=== PATIENT | male | born 1965 | race Caucasian/White ===

== ENCOUNTER 2024-04-10 18:34 | Inpatient (IN) | payer OTHER ==
[~2024-04-10] VITALS: Ht 182.9 cm; Wt 83.3 kg
[2024-04-10 19:38] LABS: BASOPHILS PERCENT AUTO 1 % (0-2); EOSINOPHILS ABSOLUTE AUTO 0.32 K/mm3 (0.00-0.68); EOSINOPHILS PERCENT AUTO 4 % (0-6); Hematocrit 24.5 % (37.0-53.0); Hemoglobin 7.9 g/dL (13.5-17.5); IMMATURE GRAN ABSOLUTE AUTO 0.05 K/mm3 (0.00-0.10); IMMATURE GRAN PERCENT AUTO 1 % (0-1); LYMPHOCYTES ABSOLUTE AUTO 1.22 K/mm3 (0.84-5.20); LYMPHOCYTES PERCENT AUTO 14 % (21-46); MONOCYTES ABSOLUTE AUTO 0.54 K/mm3 (0.16-1.47); MONOCYTES PERCENT AUTO 6 % (4-13); Mean Corpuscular HGB 27.5 pg (26.0-34.0); Mean Corpuscular HGB Conc 32.2 g/dL (31.5-36.5); Mean Corpuscular Volume 85 fL (80-100); Mean Platelet Volume 11.3 fL (9.1-12.4); NEUTROPHILS ABSOLUTE AUTO 6.73 K/mm3 (1.96-9.15); NEUTROPHILS PERCENT AUTO 75 % (41-73); Platelet Count 219 K/mm3 (150-400); RDW Coefficient Variation 15.9 % (11.7-14.2); RDW Standard Deviation 49.5 fL (35.1-46.3); Red Blood Cell Count 2.87 M/mm3 (4.30-5.90); White Blood Cell Count 8.96 K/mm3 (4.00-11.30)
[2024-04-10 19:52] LABS: Albumin, Blood 2.7 g/dL (3.4-5.0); Albumin/Globulin Ratio 0.6 (0.8-1.8); Bilirubin, Total 0.4 mg/dL (0.1-1.0); Bun/Creatinine Ratio 14.2 (12.0-20.0); Creatinine, Blood 3.25 mg/dL (0.60-1.20); Globulin, Blood 4.3 g/dL (2.2-4.0); Potassium, Blood 3.6 mmol/L (3.5-5.5)
[2024-04-10] MEDS ORDERED: Cefepime HCl 1,000 MG in NS 100 ML IV ONE (23:30)
[2024-04-10] MEDS ORDERED: Cefepime 1000 mg Vial ONE (23:37)
[2024-04-10] MEDS ORDERED: NS 100 ML IV ONE (23:38)
--- NOTE | 2024-04-11 02:00 | NUR ---
NEW ADMIT. PATIENT ADMITTED TO ROOM 305 FROM THE ER. PATIENT IN WITH ABCESS TO THE RIGHT CHEST WALL. PATIENT IS A&OX4. PATIENT ON TELE-NO EVENTS. PATIENT RESTING WITH RESPIRATIONS EQUAL AND UNLABORED. BED IS LOCKED IN THE LOWEST POSITION WITH CALL LIGHT IN REACH. REPORT GIVEN TO REYMUNDO AGUIAR RN.
[2024-04-11 02:08] VITALS: BP 162/65
[2024-04-11] MEDS ORDERED: Lactated Ringer's 1,000 ML IV ONE (02:37)
[2024-04-11 07:36] VITALS: BP 177/73
[2024-04-11] MEDS ORDERED: Vancomycin HCL 1,750 MG in NS 500 ML IV SCH (09:00)
--- NOTE | 2024-04-11 10:03 | NUR ---
PATIENT REFUSES AM ASSESSMENTS. SAYS "NONE OF YOUR [employer] BUSINESS QUIT ASKING ME QUESTIONS. ATTEMPS AT EDUCATION ARE MET WITH RESISTANCE AND DEFIANT ATTITUDE. PATIENT DOES ALLOW VANCOMYCEN TO BE INFUSED HOWEVER INSISTS THAT IT BE STOPPED WHEN HE GOES TO THE BATHROOM. LAB IN TO DRAW LABS AND PATIENT REFUSES BLOOD DRAW FOR BLOOD CULTURES. PATIENT REMOVES TELEMENTARY LEADS. REFUSES TO WEAR TELE. SAYS "I DON'T NEED IT LEAVE ME THE FUCK ALONE" ATTEMPS AT EDUCATION ARE MET WITH MUCH RESISTANC. IS CALLED "NO ANSWER" WILL REACH OUT TO .
[2024-04-11] MEDS ORDERED: HydrALAZINE HCl 20 MG / ML 1ML Vial IV PRN (13:10)
[2024-04-11] MEDS ORDERED: Acetaminophen 500 MG Tab PO PRN (13:10)
[2024-04-11] MEDS ORDERED: Carvedilol 3.125 MG Tab PO SCH (14:15)
[2024-04-11] MEDS ORDERED: NS 250 ML IV PRN (15:25)
[2024-04-11] MEDS ORDERED: Cefepime HCl 500 MG in NS 100 ML IV SCH (16:00)
[2024-04-11] MEDS ORDERED: Insulin Human Lispro 100 Units/ML 3ML Syringe SC SCH (16:30)
[2024-04-11 16:39] VITALS: BP 178/82
--- NOTE | 2024-04-11 17:57 | NUR ---
SUMMARY PT RESTING QUIETLY IN BED, PT HAS BEEN NPO FOR MOST OF THE DAY FOR POTENTIAL I&D PROCEDURE, PT ON A MAD CONTRACT, HAS BEEN COOPERATIVE SINCE THEN, DR HART SAW PATIENT AND ORDERED A DIET, DR HERMOSILLO IN TO SEE THE PT, PT TO BE NPO AFTER MIDNIGHT FOR THE PROCEDURE TOMORROW, PT'S GIRLFRIEND IN TO SEE THE PATIENT, VSS, WILL CONT TO MONITOR
[2024-04-11 19:50] VITALS: BP 177/73
[2024-04-11] MEDS ORDERED: Insulin Glargine-Yfgn 100 Unit/mL 3 ML SYR SC SCH (21:00)
[2024-04-11] MEDS ORDERED: Insulin Regular 100 UNIT/ML 10ML Vial SC SCH (21:00)
[2024-04-11] MEDS ORDERED: Nicotine 14 MG PATCH TOP SCH (22:25)
[2024-04-12] VITALS (15 sets, daily range): BP systolic 113–179; BP diastolic 59–79
[2024-04-12] MEDS ORDERED: Ondansetron HCl 2 MG / ML 2ML Vial IV PRN (02:15)
[2024-04-12] MEDS ORDERED: Lactated Ringer's 1,000 ML IV PRN (02:20)
[2024-04-12 06:20] LABS: BASOPHILS ABSOLUTE AUTO 0.12 K/mm3 (0.00-0.23); BASOPHILS PERCENT AUTO 1 % (0-2); EOSINOPHILS ABSOLUTE AUTO 0.45 K/mm3 (0.00-0.68); EOSINOPHILS PERCENT AUTO 5 % (0-6); Hematocrit 24.1 % (37.0-53.0); Hemoglobin 7.7 g/dL (13.5-17.5); IMMATURE GRAN ABSOLUTE AUTO 0.07 K/mm3 (0.00-0.10); IMMATURE GRAN PERCENT AUTO 1 % (0-1); LYMPHOCYTES ABSOLUTE AUTO 0.87 K/mm3 (0.84-5.20); LYMPHOCYTES PERCENT AUTO 10 % (21-46); MONOCYTES ABSOLUTE AUTO 0.86 K/mm3 (0.16-1.47); MONOCYTES PERCENT AUTO 10 % (4-13); Mean Corpuscular HGB 27.4 pg (26.0-34.0); Mean Corpuscular Volume 86 fL (80-100); Mean Platelet Volume 11.5 fL (9.1-12.4); NEUTROPHILS ABSOLUTE AUTO 6.24 K/mm3 (1.96-9.15); NEUTROPHILS PERCENT AUTO 73 % (41-73); Platelet Count 212 K/mm3 (150-400); RDW Coefficient Variation 15.9 % (11.7-14.2); RDW Standard Deviation 50.2 fL (35.1-46.3); Red Blood Cell Count 2.81 M/mm3 (4.30-5.90); White Blood Cell Count 8.61 K/mm3 (4.00-11.30)
--- NOTE | 2024-04-12 06:22 | NUR ---
SHIFT SUMMARY PATIENT HAVING INCREASED AGITATION T/O SHIFT. AXOX 4 AND SELF TRANSFER FROM BED TO W/C. HX LBKA. CBG 336. NPO FOR I&D PROCEDURE TODAY. HYPERTENSIVE WITH NEW ORDER FOR PO COREG 3.125 GIVEN. DENIES CHEST PAIN, SOB, AND N/V. REPORTS POOR VISION. PIV INTAACT. NICOTINE PATCH ORDERED BY HOSPITALIST. LR INFUSING. CALL LIGHT IN REACH. WILL CONTINUE TO MONITOR UNTIL DAY SHIFT RN ASSUMES CARE.
[2024-04-12 06:43] LABS: Alanine Aminotransfer (ALT/SGP 34 U/L (12-78); Albumin, Blood 2.6 g/dL (3.4-5.0); Albumin/Globulin Ratio 0.7 (0.8-1.8); Alk Phos 143 U/L (50-136); Anion Gap 17 mmol/L (3-11); Aspartate Aminotrans (AST/SGOT 24 U/L (12-37); Bilirubin, Total 0.4 mg/dL (0.1-1.0); Blood Urea Nitrogen 90 mg/dL (8-24); Bun/Creatinine Ratio 15.5 (12.0-20.0); CO2, Blood 24 mmol/L (21-32); Calcium, Blood 9.2 mg/dL (8.5-10.1); Chloride, Blood 97 mmol/L (98-108); Creatinine, Blood 5.81 mg/dL (0.60-1.20); Globulin, Blood 3.9 g/dL (2.2-4.0); Glomerular Filtration Rate 10 (60-); Glucose, Blood 303 mg/dL (70-99); Potassium, Blood 4.9 mmol/L (3.5-5.5); Sodium, Blood 133 mmol/L (136-145); Total Protein, Blood 6.5 g/dL (6.4-8.2); Vancomycin, Random 28.8 ug/mL
[2024-04-12] MEDS ORDERED: Anticoagulant Sod Citrate Soln 3 ML SYR IV PRN (07:45)
[2024-04-12] MEDS ORDERED: Lactobacil 2-S.Thermo-Bifido 1 1 Cap PO SCH (09:00)
[2024-04-12] MEDS ORDERED: Lactated Ringer's 1,000 ML IV ONE (11:59)
--- NOTE | 2024-04-12 12:20 | NUR ---
PT IN PACU FOR PREOP. ANETHESIA CONSULTING WITH PT NOW.
[2024-04-12] MEDS ORDERED: NS 1,000 ML IV ONE (12:21)
[2024-04-12] MEDS ORDERED: Bupivacaine 0.5% Inj 50 ML Vial ONE (12:21)
[2024-04-12] MEDS ORDERED: propofoL 20 ML IV ONE (12:23)
[2024-04-12] MEDS ORDERED: FentaNYL Citrate 50 MCG/ML 2 ML Injection ONE (12:23)
--- NOTE | 2024-04-12 19:35 | NUR ---
PT MOSTLY PLEASANT TODAY. DID GO TO DIALYSIS THEN PROMPTLY REFUSED. WAS SENT BACK. DR FARNSWORTH ADVISED. DID GO TO DAY SURG FOR I & D. DRESSING MEPILEX IN PLACE. CDI. REFUSING LUNCH AND DINNER STATES HAS GASTRO PARESIS. ALSO STATES AFRAID TO TAKE INSULIN AT HOME CANNOT SEE PENS OR GLUCOMETER TO ADMIN AND AFRAID TO KILL SELF. DISCUSSED OPTIONS. SEEMS TO PUT UP BARRIERS TO IDEAS. ASKED HIM TO TALK FRANKLY WITH DR TOMORROW. PT REFUSED DINNER, CALLED DR ALBERTO, GAVE 3 UNITS PER HIS ORDER FOR DINNER DOSE. HE DID UP PM DOSE OF LONG ACTING INSULIN TO 20 UNITS . NO OTHER CONCERNS NOTED. BED IN LOW POSITION, CALL LITE IN REACH, CALLS APROP
[2024-04-12] MEDS ORDERED: Insulin Glargine-Yfgn 100 Unit/mL 3 ML SYR SC SCH (21:00)
[2024-04-13] VITALS (15 sets, daily range): BP systolic 167–208; BP diastolic 79–111
--- NOTE | 2024-04-13 04:26 | NUR ---
SHIFT SUMMARY PATIENT HAD NO ACUTE CHANGES, VISITORS PRESENT FIRST FEW HOURS OF SHIFT. AXOX 4 AND SELF TRANSFER FROM BED TO W/C. LBKA. DENIES CHEST PAIN, SOB, AND N/V. HYPERTENSIVE. CBG 255. PIV INTACT. MEPILEX DRESSING FROM I&D CHANGED WITH SCANT DRAINAGE. STOOL SAMPLE COLLECTED AND SENT TO LAB. C-DIFF R/O. COOPERATIVE WITH CARE. CALL LIGHT IN REACH. BED IN LOWEST POSITION. WILL CONTINUE TO MONITOR UNTIL DAY SHIFT NURSE ASSUMES CARE.
[2024-04-13 05:15] LABS: BASOPHILS ABSOLUTE AUTO 0.09 K/mm3 (0.00-0.23); BASOPHILS PERCENT AUTO 1 % (0-2); EOSINOPHILS ABSOLUTE AUTO 0.42 K/mm3 (0.00-0.68); EOSINOPHILS PERCENT AUTO 5 % (0-6); Hematocrit 23.1 % (37.0-53.0); Hemoglobin 7.4 g/dL (13.5-17.5); IMMATURE GRAN ABSOLUTE AUTO 0.07 K/mm3 (0.00-0.10); IMMATURE GRAN PERCENT AUTO 1 % (0-1); LYMPHOCYTES ABSOLUTE AUTO 1.24 K/mm3 (0.84-5.20); LYMPHOCYTES PERCENT AUTO 14 % (21-46); MONOCYTES ABSOLUTE AUTO 0.73 K/mm3 (0.16-1.47); MONOCYTES PERCENT AUTO 8 % (4-13); Mean Corpuscular HGB 27.2 pg (26.0-34.0); Mean Corpuscular Volume 85 fL (80-100); Mean Platelet Volume 12.6 fL (9.1-12.4); NEUTROPHILS ABSOLUTE AUTO 6.09 K/mm3 (1.96-9.15); NEUTROPHILS PERCENT AUTO 71 % (41-73); Platelet Count 233 K/mm3 (150-400); RDW Coefficient Variation 16.5 % (11.7-14.2); Red Blood Cell Count 2.72 M/mm3 (4.30-5.90); White Blood Cell Count 8.64 K/mm3 (4.00-11.30)
--- NOTE | 2024-04-13 05:17 | NUR ---
PATIENT REFUSING MORNING VITALS REPORTING HE WOULD RATHER SLEEP. WCTM.
[2024-04-13 05:58] LABS: Alanine Aminotransfer (ALT/SGP 37 U/L (12-78); Albumin, Blood 2.5 g/dL (3.4-5.0); Albumin/Globulin Ratio 0.7 (0.8-1.8); Alk Phos 151 U/L (50-136); Anion Gap 17 mmol/L (3-11); Aspartate Aminotrans (AST/SGOT 23 U/L (12-37); Bilirubin, Total 0.3 mg/dL (0.1-1.0); Blood Urea Nitrogen 102 mg/dL (8-24); Bun/Creatinine Ratio 15.1 (12.0-20.0); CO2, Blood 22 mmol/L (21-32); Chloride, Blood 98 mmol/L (98-108); Creatinine, Blood 6.74 mg/dL (0.60-1.20); Globulin, Blood 3.7 g/dL (2.2-4.0); Glomerular Filtration Rate 9 (60-); Glucose, Blood 303 mg/dL (70-99); Magnesium, Blood 2.1 mg/dL (1.6-2.4); Potassium, Blood 5.3 mmol/L (3.5-5.5); Sodium, Blood 132 mmol/L (136-145); Total Protein, Blood 6.2 g/dL (6.4-8.2); Vancomycin, Random 24.1 ug/mL
[2024-04-13 06:00] LABS: Phosphorus, Blood 8.3 mg/dL (2.5-4.9)
[2024-04-13 06:54] LABS: C DIFFICILE DNA Formed (Negative)
[2024-04-13] MEDS ORDERED: Insulin Human Lispro 100 Units/ML 3ML Syringe SC SCH (11:30)
[2024-04-13 14:54] LABS: Bun/Creatinine Ratio 14.3 (12.0-20.0); Calcium, Blood 8.7 mg/dL (8.5-10.1); Creatinine, Blood 4.61 mg/dL (0.60-1.20); Potassium, Blood 4.2 mmol/L (3.5-5.5)
--- NOTE | 2024-04-13 18:19 | NUR ---
PT PLEASANT THIS AM. MORE IRRITABLE THIS SITA. DID HAVE DIALYSIS THIS AM. COMPLAINING ABOUT HIS FOOD MOSTLY. DID GET IN WHEELCHAIR AND MOTATE ABOUT HALLS TODAY. DISCUSSED PT VISION ISSUES AND HIS FEAR OF TRYING TO GIVE SELF OWN INSULIN. DR DISCUSSED HIM GETTING INSULIN PUMP AND ALL BEING AUTOMATIC. PT FEELS THIS MAY BE A SOLUTION. ON OTHER CONCERNS NOTED. BED IN LOW POSITION, CALL LITE IN REACH, CALLS APPROP
--- NOTE | 2024-04-13 19:08 | NUR ---
PATIENT REPORTED NAUSEOUS BUT REFUSED IV ZOFRAN. WCTM.
--- NOTE | 2024-04-14 04:20 | NUR ---
SHIFT SUMMARY PATIENT HAD NO ACUTE CHANGES. AXOX 4 AND INDEPENDENT TRANSFER FROM BED TO W/C. L BKA. IRRITABLE AT TIMES. REFUSED AM LABS REPORTING TO COME AFTER 8:00. REFUSED MORNING VITALS. DENIES CHEST PAIN, SOB, AND N/V. HYPERTENSIVE. CBG 216. REFUSED IV ZOFRAN WHEN REPORTED NAUSEOUS. CALL LIGHT IN REACH. BED IN LOWEST POSITION. WILL CONTINUE TO MONITOR UNTIL DAY SHIFT NURSE ASSUMES CARE.
--- NOTE | 2024-04-14 04:56 | NUR ---
Pt refused morning vitals, also refused labs
[2024-04-14 08:24] VITALS: BP 194/85
[2024-04-14 08:41] LABS: BASOPHILS ABSOLUTE AUTO 0.09 K/mm3 (0.00-0.23); BASOPHILS PERCENT AUTO 1 % (0-2); EOSINOPHILS PERCENT AUTO 4 % (0-6); Hemoglobin 8.8 g/dL (13.5-17.5); IMMATURE GRAN ABSOLUTE AUTO 0.08 K/mm3 (0.00-0.10); IMMATURE GRAN PERCENT AUTO 1 % (0-1); LYMPHOCYTES ABSOLUTE AUTO 1.34 K/mm3 (0.84-5.20); LYMPHOCYTES PERCENT AUTO 14 % (21-46); MONOCYTES ABSOLUTE AUTO 0.86 K/mm3 (0.16-1.47); MONOCYTES PERCENT AUTO 9 % (4-13); Mean Corpuscular HGB 27.2 pg (26.0-34.0); Mean Corpuscular HGB Conc 31.4 g/dL (31.5-36.5); Mean Corpuscular Volume 87 fL (80-100); Mean Platelet Volume 12.1 fL (9.1-12.4); NEUTROPHILS ABSOLUTE AUTO 6.85 K/mm3 (1.96-9.15); NEUTROPHILS PERCENT AUTO 71 % (41-73); Platelet Count 257 K/mm3 (150-400); RDW Coefficient Variation 16.5 % (11.7-14.2); RDW Standard Deviation 51.8 fL (35.1-46.3); Red Blood Cell Count 3.23 M/mm3 (4.30-5.90); White Blood Cell Count 9.62 K/mm3 (4.00-11.30)
[2024-04-14 09:14] LABS: Alanine Aminotransfer (ALT/SGP 65 U/L (12-78); Albumin, Blood 2.7 g/dL (3.4-5.0); Albumin/Globulin Ratio 0.6 (0.8-1.8); Alk Phos 165 U/L (50-136); Anion Gap 16 mmol/L (3-11); Aspartate Aminotrans (AST/SGOT 42 U/L (12-37); Bilirubin, Total 0.4 mg/dL (0.1-1.0); Blood Urea Nitrogen 85 mg/dL (8-24); Bun/Creatinine Ratio 14.3 (12.0-20.0); CO2, Blood 27 mmol/L (21-32); Calcium, Blood 9.1 mg/dL (8.5-10.1); Chloride, Blood 98 mmol/L (98-108); Creatinine, Blood 5.95 mg/dL (0.60-1.20); Globulin, Blood 4.4 g/dL (2.2-4.0); Glomerular Filtration Rate 10 (60-); Glucose, Blood 207 mg/dL (70-99); Magnesium, Blood 2.1 mg/dL (1.6-2.4); Phosphorus, Blood 7.2 mg/dL (2.5-4.9); Potassium, Blood 4.9 mmol/L (3.5-5.5); Sodium, Blood 136 mmol/L (136-145); Total Protein, Blood 7.1 g/dL (6.4-8.2); Vancomycin, Random 20.6 ug/mL
[2024-04-14] MEDS ORDERED: Ampicillin Sod 2,000 MG in NS 100 ML IV SCH (12:00)
[2024-04-14] MEDS ORDERED: LIPITOR80 MG PO (17:03)
[2024-04-14] MEDS ORDERED: PLAVIX75 MG PO (17:03)
[2024-04-14] MEDS ORDERED: PANTOPRAZOLE SO2010 PO (17:03)
[2024-04-14] MEDS ORDERED: CARVEDILOL12.5 MG PO (17:03)
[2024-04-14] MEDS ORDERED: REGLAN1013 PO (17:04)
[2024-04-14] MEDS ORDERED: ASPI81CH PO (17:04)
[2024-04-14] MEDS ORDERED: TORS10 PO (17:04)
[2024-04-14] MEDS ORDERED: ISOSORBIDE MONO60 MG PO (17:04)
[2024-04-14] MEDS ORDERED: CENTRUM SILVER1 EAC2 PO (17:05)
[2024-04-14 17:16] VITALS: BP 171/88
--- NOTE | 2024-04-14 18:38 | NUR ---
SHIFT SUMMARY: PT A&O X4. COOPERATIVE WITH CARE THIS SHIFT. MAD CONTRACT IN PLACE. PT EVAL IN PLACE FOR TOMORROW. PT REQESTING TO RETURN TO [facility] THEN STATED HE WOULD RATHER GO TO SNF D/T UNABLE TO CARE FOR HIMSELF AT HOME AND UNABLE TO MANAGE OWN INSULIN. PREVIOUS IV ABX D/C AND PT PLACED ON 2G AMPICILLIN Q6. INDEPENDENT TRANSFER FROM BED TO W/C. HYPERTENSION NOTED THIS AM. PRN HYDRALAZINE GIVEN. CALL LIGHT IN REACH. BED IN LOWEST POSITION.
[2024-04-14 19:34] VITALS: BP 158/74
[2024-04-15] VITALS (15 sets, daily range): BP systolic 138–193; BP diastolic 67–100
[2024-04-15] MEDS ORDERED: Ampicillin Sod 2,000 MG in NS 100 ML IV SCH
--- NOTE | 2024-04-15 04:45 | NUR ---
PATIENT IS A&OX4, ON ROOM AIR, ELEVATED BP 175/78 HAS PRN BP MEDS. PATIENT DENIED PAIN. PATIENT CALLS APPROPRIATELY BUT GET AGITATED AT STAFF FOR NOT HAVING EVERYTHING THAT HE REQUEST FOR. BLOOD GLUCOSE WITH IN DEFINED LIMIT DURING SHIFT. PATIENT IS INDEPENDENT IN ROOM WITH HIS WHEELCHAIR, HAS A LEFT BKA. 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 PATIENT GOES TO DIALYSIS EVERY TUESDAYS, THURSDAYS, AND .
[2024-04-15 08:43] LABS: BASOPHILS ABSOLUTE AUTO 0.09 K/mm3 (0.00-0.23); BASOPHILS PERCENT AUTO 1 % (0-2); EOSINOPHILS ABSOLUTE AUTO 0.42 K/mm3 (0.00-0.68); EOSINOPHILS PERCENT AUTO 4 % (0-6); Hematocrit 25.4 % (37.0-53.0); Hemoglobin 8.1 g/dL (13.5-17.5); IMMATURE GRAN ABSOLUTE AUTO 0.07 K/mm3 (0.00-0.10); IMMATURE GRAN PERCENT AUTO 1 % (0-1); LYMPHOCYTES ABSOLUTE AUTO 1.48 K/mm3 (0.84-5.20); LYMPHOCYTES PERCENT AUTO 16 % (21-46); MONOCYTES ABSOLUTE AUTO 0.89 K/mm3 (0.16-1.47); MONOCYTES PERCENT AUTO 9 % (4-13); Mean Corpuscular HGB 27.2 pg (26.0-34.0); Mean Corpuscular HGB Conc 31.9 g/dL (31.5-36.5); Mean Corpuscular Volume 85 fL (80-100); Mean Platelet Volume 11.5 fL (9.1-12.4); NEUTROPHILS ABSOLUTE AUTO 6.57 K/mm3 (1.96-9.15); NEUTROPHILS PERCENT AUTO 69 % (41-73); Platelet Count 246 K/mm3 (150-400); RDW Coefficient Variation 16.6 % (11.7-14.2); RDW Standard Deviation 50.6 fL (35.1-46.3); Red Blood Cell Count 2.98 M/mm3 (4.30-5.90); White Blood Cell Count 9.52 K/mm3 (4.00-11.30)
[2024-04-15 09:03] LABS: Albumin, Blood 2.6 g/dL (3.4-5.0); Albumin/Globulin Ratio 0.6 (0.8-1.8); Bilirubin, Total 0.3 mg/dL (0.1-1.0); Bun/Creatinine Ratio 14.2 (12.0-20.0); Calcium, Blood 9.2 mg/dL (8.5-10.1); Creatinine, Blood 6.62 mg/dL (0.60-1.20); Globulin, Blood 4.2 g/dL (2.2-4.0); Phosphorus, Blood 7.9 mg/dL (2.5-4.9); Potassium, Blood 4.9 mmol/L (3.5-5.5); Total Protein, Blood 6.8 g/dL (6.4-8.2)
--- NOTE | 2024-04-15 19:04 | NUR ---
SHIFT SUMMARY: PT A&O X4. RECIEVIED DIALYSIS THIS AM. IV IN RFA PAINFUL. ATTEMPTED IV TWICE; BOTH BLOWN. NIGHT RN AWARE. CONTINUES TO BE HYPERTENSIVE. TRANSFERS INDEPENDENTLY FROM BED TO WHEELCHAIR. [facility] TENTATIVELY ACCTED PT BUT WANTS TO COMPLETE 1:1 INTERVIEW PRIOR TO ACCEPTANCE. PLAN FOR THAT TO HAPPEN TOMORROW. PT STATING HE WAS WISHING TO GO BACK TO [facility] FOR A FEW DAYS PRIOR TO ADMITTING TO [facility]. CALL LIGHT IN REACH.
--- NOTE | 2024-04-15 19:09 | NUR ---
RECEIVED REPORT FROM DAY SHIFT RN. PT IN BED. WILL PROVIDE CARE T/O SHIFT. CALL LT IN REACH.
--- NOTE | 2024-04-15 19:55 | NUR ---
PT SITTING UP IN WHEELCHAIR.
[2024-04-15] MEDS ORDERED: Heparin Sodium,Porcine 5,000 UNIT/0.5 ML SDV SC SCH (21:00)
--- NOTE | 2024-04-16 00:10 | NUR ---
PT AWAKE WATCHING SOMETHING ON HIS PHONE. DENIES NEEDS AT THIS TIME. IV ABX INFUSING. CALL LT IN REACH.
[2024-04-16 02:11] VITALS: BP 153/97
--- NOTE | 2024-04-16 02:22 | NUR ---
PT OUT AND ABOUT IN WHEELCHAIR. NO NEEDS AT THIS TIME. LINENS CHANGED WHILE PT OUT OF BED.
--- NOTE | 2024-04-16 05:30 | NUR ---
SHIFT SUMMARY: PT COOPERATIVE WITH CARE THIS SHIFT. ON RA. LBKA. TRANSFERS INDEPENDENTLY. A/O STATES NEEDS APPROPRIATELY. CBG 140 NO COVERAGE INDICATED. 20 U OF LANTUS GIVEN WITH A SNACK LATER. PT UP AND AROUND IN W/C. APPEARS DEPRESSED, DOESN'T WANT TO GO TO A SNF BUT DOESN'T WANT TO END UP ON THE STREETS AGAIN EITHER. ENCOURAGED PT TO SPEAK TO A INSTRUCTIONAL PARAPROFESSIONAL ABOUT DISCHARGE PLANNING. NO ACUTE CHANGES. WILL CONTINUE TO PROVIDE CARE T/O SHIFT UNTIL SHIFT REPORT TO ONCOMING NURSE.
[2024-04-16 06:10] LABS: BASOPHILS ABSOLUTE AUTO 0.11 K/mm3 (0.00-0.23); BASOPHILS PERCENT AUTO 1 % (0-2); EOSINOPHILS ABSOLUTE AUTO 0.41 K/mm3 (0.00-0.68); EOSINOPHILS PERCENT AUTO 4 % (0-6); Hematocrit 23.1 % (37.0-53.0); Hemoglobin 7.4 g/dL (13.5-17.5); IMMATURE GRAN ABSOLUTE AUTO 0.06 K/mm3 (0.00-0.10); IMMATURE GRAN PERCENT AUTO 1 % (0-1); LYMPHOCYTES ABSOLUTE AUTO 1.95 K/mm3 (0.84-5.20); LYMPHOCYTES PERCENT AUTO 20 % (21-46); MONOCYTES ABSOLUTE AUTO 0.81 K/mm3 (0.16-1.47); MONOCYTES PERCENT AUTO 8 % (4-13); Mean Corpuscular HGB 27.3 pg (26.0-34.0); Mean Corpuscular Volume 85 fL (80-100); Mean Platelet Volume 11.3 fL (9.1-12.4); NEUTROPHILS PERCENT AUTO 65 % (41-73); Platelet Count 235 K/mm3 (150-400); RDW Coefficient Variation 16.7 % (11.7-14.2); RDW Standard Deviation 51.4 fL (35.1-46.3); Red Blood Cell Count 2.71 M/mm3 (4.30-5.90); White Blood Cell Count 9.64 K/mm3 (4.00-11.30)
[2024-04-16 06:39] LABS: Albumin, Blood 2.4 g/dL (3.4-5.0); Anion Gap 14 mmol/L (3-11); Blood Urea Nitrogen 62 mg/dL (8-24); Bun/Creatinine Ratio 11.4 (12.0-20.0); CO2, Blood 28 mmol/L (21-32); Chloride, Blood 100 mmol/L (98-108); Creatinine, Blood 5.45 mg/dL (0.60-1.20); Glomerular Filtration Rate 11 (60-); Glucose, Blood 122 mg/dL (70-99); Phosphorus, Blood 6.5 mg/dL (2.5-4.9); Potassium, Blood 4.2 mmol/L (3.5-5.5); Sodium, Blood 138 mmol/L (136-145)
[2024-04-16 07:39] VITALS: BP 177/80
[2024-04-16] MEDS ORDERED: Carvedilol 6.25 MG Tab PO SCH (08:00)
[2024-04-16] MEDS ORDERED: Amoxicillin/Clavulanate K 500 MG Tab PO SCH (09:49)
[2024-04-16] MEDS ORDERED: Amoxicillin/Clavulanate K 875 MG Tab PO SCH (10:00)
[2024-04-16] MEDS ORDERED: AMOCLA500 PO (14:50)
[2024-04-16] MEDS ORDERED: LOSA25 PO (14:51)
[2024-04-16] MEDS ORDERED: LACT PO (14:51)
[2024-04-16] MEDS ORDERED: ISOSORBIDE MONO30 MG PO (14:52)
[2024-04-16] MEDS ORDERED: BASAGLAR K100 UNIT/1 SC (14:53)
--- NOTE | 2024-04-16 17:30 | NUR ---
SHIFT SUMMARY AND DISCHARGE PATIENT ALERT AND INTERACTIVE. PATIENT VERY FRUSTRATED WITH CURRENT SITUATION. PATIENT NOT WANTING TO GO TO LONG-TERM FACILITIES. PATIENT ABLE TO DRESS SELFT AND DO MOST OF ADL'S. PATIENT NEEDING ASSISTANCE WITH MEDICATIONS BECAUSE OF BEING LEGALLY BLIND. PATIENT HAS CAREGIVERS TO ASSIST. PATIENT SPOKE WITH [facility] DROP FORGE OPERATOR AND VERBALIZED FRUSTRATIONS. DISCHARGE INSTRUCTIONS REVIEWED WITH PATIENT AND COPY SENT HOME WITH PATIENT. PATIENT PACKED UP BELONGINGS AND ESCORTED DOWN TO LOBBY FOR TAXI IN HIS WHEELCHAIR. PROVIDED ACTIVE LISTENING AND SUPPORT WHEN PATIENT FRUSTRATED. IV DC'D BEFORE DISCHARGE. DRESSING CHANGED TO CHEST WALL AND R ELBOW BEFORE DISCHARGE. EXTRA DRESSINGS SENT HOME WITH PATIENT.
[2024-04-16] MEDS ORDERED: Losartan Potassium 25 MG Tab PO SCH (21:00)
== END 2024-04-16 17:30 | disposition home or self-care (01) | DRG 314 ==
LOC: ER 18:34 → MEDS 18:35
PROVIDERS: Internal Medicine Nephrology; Student in an Organized Health Care Education/Training Program; ADMIT Student in an Organized Health Care Education/Training Program
PROC: 0W980ZZ Drainage of Chest Wall, Open Approach (ICD-10-PCS; principal; 2024-04-13)
PROC: 5A1D70Z Performance of Urinary Filtration, Intermittent, Less than 6 Hours Per Day (ICD-10-PCS; 2024-04-13)
DX: T80.212A Local infection due to central venous catheter, initial encounter (principal); J86.9 Pyothorax without fistula; N18.6 End stage renal disease; I12.0 Hypertensive chronic kidney disease with stage 5 chronic kidney disease or end stage renal disease; N25.81 Secondary hyperparathyroidism of renal origin; E87.1 Hypo-osmolality and hyponatremia; E87.5 Hyperkalemia; E11.22 Type 2 diabetes mellitus with diabetic chronic kidney disease; Z99.2 Dependence on renal dialysis; Z79.82 Long term (current) use of aspirin; Z79.2 Long term (current) use of antibiotics; Z79.02 Long term (current) use of antithrombotics/antiplatelets; Z79.4 Long term (current) use of insulin; Z79.899 Other long term (current) drug therapy; D63.1 Anemia in chronic kidney disease; Z98.890 Other specified postprocedural states; Z89.512 Acquired absence of left leg below knee; Z86.14 Personal history of Methicillin resistant Staphylococcus aureus infection; Z87.891 Personal history of nicotine dependence
CPT/HCPCS: 36415; 71260; 76604; 80048; 80053; 80069; 80202; 82947; 83036; 83605; 83735; 84100; 85025; 87040; 87070; 87075; 87077; 87186; 87205; 93005; 93010; 96374; 96374-59; 96375; 96376; 97116; 97162; 97530; 99285-25; A9270; G0378; J0290; J0360; J0692; J1644; J1815; J2704; J3010; J3370; J7030; J7040; J7120; Q9967

== ENCOUNTER 2024-07-07 09:34 | Inpatient (IN) | payer MEDICARE, OTHER ==
[2024-07-07] VITALS (15 sets, daily range): BP systolic 137–206; BP diastolic 61–106
[~2024-07-07] VITALS: Ht 182.9 cm; Wt 83.5 kg
[~2024-07-07 09:34] MED LIST: AMOCLA500 PO; ASPI81CH PO; ATOR40TA PO; BASAGLAR K100 UNIT/1 SC; CARVEDILOL12.5 MG PO; CENTRUM SILVER1 EAC2 PO; ISOSORBIDE MONO30 MG PO; ISOSORBIDE MONO60 MG PO; LACT PO; LOSA50 PO; PANTOPRAZOLE SO2010 PO; PLAVIX75 MG PO; REGLAN1013 PO; TORS10 PO
[2024-07-07 10:16] LABS: BASOPHILS ABSOLUTE AUTO 0.06 K/mm3 (0.00-0.23); BASOPHILS PERCENT AUTO 0 % (0-2); EOSINOPHILS ABSOLUTE AUTO 0.04 K/mm3 (0.00-0.68); EOSINOPHILS PERCENT AUTO 0 % (0-6); Hematocrit 39.5 % (37.0-53.0); Hemoglobin 12.5 g/dL (13.5-17.5); IMMATURE GRAN ABSOLUTE AUTO 0.11 K/mm3 (0.00-0.10); IMMATURE GRAN PERCENT AUTO 1 % (0-1); LYMPHOCYTES ABSOLUTE AUTO 0.78 K/mm3 (0.84-5.20); LYMPHOCYTES PERCENT AUTO 5 % (21-46); MONOCYTES ABSOLUTE AUTO 0.89 K/mm3 (0.16-1.47); MONOCYTES PERCENT AUTO 5 % (4-13); Mean Corpuscular HGB 26.1 pg (26.0-34.0); Mean Corpuscular HGB Conc 31.6 g/dL (31.5-36.5); Mean Corpuscular Volume 83 fL (80-100); Mean Platelet Volume 11.6 fL (9.1-12.4); NEUTROPHILS ABSOLUTE AUTO 14.99 K/mm3 (1.96-9.15); NEUTROPHILS PERCENT AUTO 89 % (41-73); Platelet Count 135 K/mm3 (150-400); RDW Coefficient Variation 17.5 % (11.7-14.2); RDW Standard Deviation 52.8 fL (35.1-46.3); Red Blood Cell Count 4.79 M/mm3 (4.30-5.90); White Blood Cell Count 16.87 K/mm3 (4.00-11.30)
[2024-07-07] MEDS ORDERED: Ondansetron HCl 2 MG / ML 2ML Vial IV ONE (11:15)
[2024-07-07] MEDS ORDERED: FentaNYL Citrate 50 MCG/ML 2 ML Injection IV ONE (11:15)
[2024-07-07 11:16] LABS: Albumin, Blood 3.1 g/dL (3.4-5.0); Albumin/Globulin Ratio 0.8 (0.8-1.8); Bilirubin, Total 0.6 mg/dL (0.1-1.0); Bun/Creatinine Ratio 13.2 (12.0-20.0); Calcium, Blood 10.5 mg/dL (8.5-10.1); Creatinine, Blood 5.08 mg/dL (0.60-1.20); Globulin, Blood 4.1 g/dL (2.2-4.0); Potassium, Blood 5.6 mmol/L (3.5-5.5); Total Protein, Blood 7.2 g/dL (6.4-8.2)
[2024-07-07] MEDS ORDERED: Nitroglycerin 1 INCH/GM PKT TOP ONE (12:20)
[2024-07-07 12:52] LABS: Anti-Xa UFH, PHA Monitoring <0.10 IU/mL; International Normalized Ratio 0.99; Prothrombin Time Results 10.6 Sec (9.7-11.5)
[2024-07-07] MEDS ORDERED: Dose Adjust by Pharmacy XX STA ×2 (13:07→20:53)
[2024-07-07] MEDS ORDERED: Heparin Sodium 5000 Units/ML 1ML MDV IV ONE (13:10)
[2024-07-07] MEDS ORDERED: Heparin Sodium,Porcine/0.5 NS 500 ML IV SCH (13:10)
[2024-07-07] MEDS ORDERED: Ondansetron 4 MG TAB PO PRN (13:35)
[2024-07-07] MEDS ORDERED: OxyCODONE HCL 5 MG TAB PO PRN (13:35)
[2024-07-07] MEDS ORDERED: Magnesium Hydroxide Conc 10 ML UDC PO PRN (13:35)
[2024-07-07] MEDS ORDERED: Zolpidem Tartrate 5 MG Tab PO PRN (13:35)
[2024-07-07] MEDS ORDERED: FLU VACC TS2024-25(6MOS UP)/PF 45 MCG/0.5 ML SYRINGE IM SCH (13:35)
[2024-07-07] MEDS ORDERED: Naloxone HCl 0.4MG / ML 1ML Vial IV PRN (13:35)
[2024-07-07] MEDS ORDERED: Acetaminophen 325 MG TABLET PO PRN (13:40)
[2024-07-07] MEDS ORDERED: Bisacodyl 10 MG Supp PR PRN (13:40)
[2024-07-07] MEDS ORDERED: Nitroglycerin/D5W 250 ML IV SCH (13:55)
[2024-07-07] MEDS ORDERED: Insulin Human Lispro 100 Units/ML 3ML Syringe SC SCH (16:30)
[2024-07-07] MEDS ORDERED: Carvedilol 25 MG Tab PO SCH (17:00)
[2024-07-07] MEDS ORDERED: Carvedilol 6.25 MG Tab PO SCH (17:00)
[2024-07-07] MEDS ORDERED: AmLODIPine Besylate 5 MG Tab PO SCH (17:00)
[2024-07-07] MEDS ORDERED: NITR.4SL SL (17:22)
[2024-07-07] MEDS ORDERED: Furosemide 10 MG/ML 4ML Vial IV SCH (18:00)
--- NOTE | 2024-07-07 19:22 | NUR ---
ADMISSION/SHIFT SUMMARY: PT ARRIVES F/ ER APPRX 1530 TODAY. ARRIVES A&Ox4, TRANSFERS SELF FROM [place] TO BED. PT COOPERATIVE W/CARE, BUT SELECTIVE ABOUT CERTAIN THINGS SUCH DECLINING TO GO THROUGH HIS HOME MEDICATION LIST. PT DENIES SOB, O2 SATS >93% ON RA. PT CONTINUES TO DENY CHEST PAIN SINCE ADMISSION, SR ON MONITOR, RATE 90s. UPON ARRIVAL TO ROOM, ECHO COMPLETED AT BEDSIDE, CARDIOLOGY CONSULT COMPLETED AT BEDSIDE W/PLAN FOR ANGIOGRAM IN AM, NPO AT MIDNIGHT, HEP GTT INFUSING PER ORDERS. DIALYSIS COMPLETED AT BEDSIDE, APPROX 1500 ML OFF. PT PROVIDED W/MEAL TRAY. REPORT GIVEN TO CIELO BANERJEE TO ASSUME CARE OF PT.
--- NOTE | 2024-07-07 20:43 | NUR ---
CHECKED ON PATIENT, PT SAID "LEAVE ME ALONE AND DON'T COME BACK IN." NURSE NOTIFIED.
[2024-07-07] MEDS ORDERED: Isosorbide Mononitrate 60 MG TABCR PO SCH (21:00)
[2024-07-07] MEDS ORDERED: Insulin Glargine-Yfgn 100 Unit/mL 3 ML SYR SC SCH (21:00)
[2024-07-07] MEDS ORDERED: Losartan Potassium 25 MG Tab PO SCH ×2 (21:00)
[2024-07-07] MEDS ORDERED: Atorvastatin 40 MG Tab PO SCH (21:00)
[2024-07-07] MEDS ORDERED: Famotidine 20 MG Tab PO SCH (21:00)
[2024-07-07] MEDS ORDERED: Lactobacil 2-S.Thermo-Bifido 1 1 Cap PO SCH (21:00)
--- NOTE | 2024-07-07 23:58 | NUR ---
PT REQUESTING LEFT THUMB TO BE BANDAGED AND THAT HE HAS PURULENT DRAINAGE FROM THAT. NO OPEN WOUND NOTED, NO DRAINAGE NOTED. PT DECLINES BANDAIDS AND ABX OINTMENT. PT POINTS TO COBAN ON ARM FOR FISTULA AND STATES "NOBODY LISTENS TO ME JUST WRAP IT WITH THIS STUFF." ATTEMPTED TO BANDAGED LEFT THUMB WITH GAUZE AND COBAN, PT STATES JUST THE WRAP. PT BECOMING ARGUMENTATIVE WITH THIS RN REGARDING WOUND CARE. PT GIVEN COBAN TO APPLY DRESSING HOW THEY WANT IT DONE. PT STATES HE GETS IT FROM A "NERVOUS TIC." NO OBVIOUS WOUND OR DRAINAGE NOTED DESPITE PT INSISTANCE THERE IS. DRESSING SUPPLIES GIVEN TO PT TO DE-ESCALATE CONFLICT WITH PT.
[2024-07-08] VITALS (19 sets, daily range): BP systolic 98–181; BP diastolic 53–96
[2024-07-08 02:24] LABS: BASOPHILS ABSOLUTE AUTO 0.08 K/mm3 (0.00-0.23); BASOPHILS PERCENT AUTO 1 % (0-2); EOSINOPHILS ABSOLUTE AUTO 0.24 K/mm3 (0.00-0.68); EOSINOPHILS PERCENT AUTO 2 % (0-6); Hematocrit 32.8 % (37.0-53.0); Hemoglobin 10.2 g/dL (13.5-17.5); IMMATURE GRAN ABSOLUTE AUTO 0.07 K/mm3 (0.00-0.10); IMMATURE GRAN PERCENT AUTO 1 % (0-1); LYMPHOCYTES ABSOLUTE AUTO 1.22 K/mm3 (0.84-5.20); LYMPHOCYTES PERCENT AUTO 10 % (21-46); MONOCYTES ABSOLUTE AUTO 0.85 K/mm3 (0.16-1.47); MONOCYTES PERCENT AUTO 7 % (4-13); Mean Corpuscular HGB 26.2 pg (26.0-34.0); Mean Corpuscular HGB Conc 31.1 g/dL (31.5-36.5); Mean Corpuscular Volume 84 fL (80-100); Mean Platelet Volume 11.5 fL (9.1-12.4); NEUTROPHILS PERCENT AUTO 79 % (41-73); Platelet Count 145 K/mm3 (150-400); RDW Coefficient Variation 17.4 % (11.7-14.2); RDW Standard Deviation 53.2 fL (35.1-46.3); White Blood Cell Count 11.86 K/mm3 (4.00-11.30)
[2024-07-08] MEDS ORDERED: Dose Adjust by Pharmacy XX STA (02:48)
[2024-07-08 02:52] LABS: Magnesium, Blood 2.1 mg/dL (1.6-2.4)
[2024-07-08 03:49] LABS: LDL/HDL RATIO 0.1; Very Low Density Lipoprot Chol 14 mg/dL (6-32)
[2024-07-08 03:50] LABS: Alanine Aminotransfer (ALT/SGP 18 U/L (12-78); Albumin, Blood 2.5 g/dL (3.4-5.0); Albumin/Globulin Ratio 0.7 (0.8-1.8); Alk Phos 89 U/L (50-136); Anion Gap 12 mmol/L (3-11); Aspartate Aminotrans (AST/SGOT 15 U/L (12-37); Bilirubin, Total 0.5 mg/dL (0.1-1.0); Blood Urea Nitrogen 52 mg/dL (8-24); Bun/Creatinine Ratio 12.2 (12.0-20.0); CHOL/HDL RATIO 1.4; CO2, Blood 31 mmol/L (21-32); Calcium, Blood 9.2 mg/dL (8.5-10.1); Chloride, Blood 96 mmol/L (98-108); Cholesterol 90 mg/dL (50-200); Creatinine, Blood 4.27 mg/dL (0.60-1.20); Globulin, Blood 3.5 g/dL (2.2-4.0); Glomerular Filtration Rate 15 (60-); Glucose, Blood 283 mg/dL (70-99); HDL Cholesterol 66 mg/dL (>39); Low Density Lipoprotein Chol 10 mg/dL (0-110); Phosphorus, Blood 7.1 mg/dL (2.5-4.9); Potassium, Blood 5.2 mmol/L (3.5-5.5); Sodium, Blood 134 mmol/L (136-145); Triglycerides 71 mg/dL (30-160)
[2024-07-08] MEDS ORDERED: Pantoprazole Sodium 40 MG Tab PO SCH (06:00)
--- NOTE | 2024-07-08 06:51 | NUR ---
NO REPORTS OF CHEST PAIN OR SOB THROUGHOUT THE SHIFT. PT IS VERY IRRITABLE AND LABILE MOOD. PT DID NOT WANT TO BE BOTHER AND DECLINED VITALS AND WEIGHT AT NORMAL TIMES. PT DID TOLERATE HEPARIN INFUSION AND THAT CONTINUES W/O PROBLEM. PT ABLE TO TRANSFER SELF TO CHAIR WITH SBA FOR LINE MANAGEMENT, OTHERWISE PT DECLINES ANY HELP. PT TOLERATED HEMODIALYSIS AT THE BEGINNING OF THE SHIFT. PT WAS BARELY COOPERATIVE WITH OTHER TREATMENTS AND TESTS THROUGHOUT THE SHIFT.
[2024-07-08] MEDS ORDERED: Anticoagulant Sod Citrate Soln 3 ML SYR INJ PRN (08:20)
[2024-07-08] MEDS ORDERED: Heparin Sodium 1000 Units/ML 10ML MDV ONE ×2 (08:21→09:23)
[2024-07-08] MEDS ORDERED: NiCARdipine HCL 1,000 MCG/5 ML SYR ONE (08:22)
[2024-07-08] MEDS ORDERED: NS 250 ML IV ONE (08:22)
[2024-07-08] MEDS ORDERED: Nitroglycerin 2 MG/20 ML BTL ONE (08:22)
[2024-07-08] MEDS ORDERED: NS 1,000 ML IV ONE ×2 (08:22→08:48)
--- NOTE | 2024-07-08 08:27 | NUR ---
NURSE NOTE PT WHEELED IN A BED TO SKEIN DYER AT THIS TIME.
[2024-07-08] MEDS ORDERED: FentaNYL Citrate 50 MCG/ML 2 ML Injection ONE (08:47)
[2024-07-08] MEDS ORDERED: Midazolam HCl 1MG / ML 2ML Vial ONE (08:48)
[2024-07-08] MEDS ORDERED: Aspirin 81 MG Chew PO SCH (09:00)
[2024-07-08] MEDS ORDERED: Losartan Potassium 50 MG Tab PO SCH (09:00)
[2024-07-08] MEDS ORDERED: Furosemide 80 MG Tab PO SCH (09:00)
[2024-07-08] MEDS ORDERED: Clopidogrel Bisulfate 75 MG Tab PO SCH (09:00)
[2024-07-08] MEDS ORDERED: Atorvastatin 40 MG Tab PO SCH ×2 (09:00→21:00)
[2024-07-08] MEDS ORDERED: Sodium Zirconium Cyclosilicate 10 GM Packet PO SCH (09:00)
[2024-07-08] MEDS ORDERED: Isosorbide Mononitrate 60 MG TABCR PO SCH (09:00)
[2024-07-08] MEDS ORDERED: Clopidogrel Bisulfate 75 MG Tab ONE (09:19)
[2024-07-08 09:36] LABS: U Amphetamine Screen DETECTED; U Methamphetamine Screen DETECTED
[2024-07-08 09:37] LABS: U Barbituate Screen Not Detected; U Benzodiazapine Screen Not Detected; U Buprenorphine Screen Not Detected; U Cannabinoids Screen Not Detected; U Cocaine Screen Not Detected; U Methadone Screen Not Detected; U Opiates Screen Not Detected; U Oxycodone Screen Not Detected; U Phencyclidine Screen Not Detected
--- NOTE | 2024-07-08 11:37 | NUR ---
NURSE NOTE RYAN PUGA IN HOME CARE, SHE WOULD LIKE TO BE NOTIFIED AT [phone] WHEN PT DISCHARGES. PT CURRENTLY HAS IN HOME CARE AT THE [place] HE LIVES IN SUNDAY[place], TIFFANIE ALSO STATES SHE THINKS ASSISTED PLACEMENT IS BEST FOR HIM.
--- NOTE | 2024-07-08 13:04 | NUR ---
NURSE NOTE HEARD YELLING COMING FROM THE PATIENT ROOM, I WALKED IN THE ROOM TO SEE WHAT WAS HAPPENING. PT WAS YELLING AT THE [place] ROOM STATING "NO ONE IS LISENING TO ME, AND YOU ALL ARE A BUNCH OF FUCKING IDIOTS". I ASKED THE PATIENT TO CALM DOWN AND TELL ME WHAT HE WAS UPSET ABOUT, HE THEN TOLD ME HE DOES NOT WANT TO TALK TO ME AND TO, "LEAVE HIM THE FUCK ALONE." WAS ABLE TO OBTAIN NOON TIME VITAlS, THEN I LEFT ROOM REQUESTED. CALL LIGHT IN REACH.
--- NOTE | 2024-07-08 13:20 | NUR ---
NURSE NOTE PT ARGREEABLE W/ CARE WHEN MYSELF AND THE MANAGER CREATIVE SERVICES RETURNED TO THE ROOM TO GET EKG. PT STATED HE WAS SORRY FOR YELLING EARLIER. TR BAND IS RECOVERED AT THIS TIME. CALL LIGHT IN REACH.
--- NOTE | 2024-07-08 18:49 | NUR ---
SHIFT SUMMARY PT TR BAND RECOVERED, TAGADERM DRESSING & ARM BOARD IN PLACE, PULSES PRESENT. SIGHT FREE OF REDNESS, HEMATOMA, PT DENIES PAIN AT THE SIGHT. PT DID ENDORSE A HEADACHE TODAY, AND WAS MEDICATED FOR THIS. PT ABLE TO MAKE NEEDS KNOWN, CALL LIGHT IN REACH.
[2024-07-08] MEDS ORDERED: Insulin Glargine-Yfgn 100 Unit/mL 3 ML SYR SC SCH (21:00)
[2024-07-09] VITALS (15 sets, daily range): BP systolic 120–168; BP diastolic 59–98
[2024-07-09 03:51] LABS: Hematocrit 32.6 % (37.0-53.0); Hemoglobin 10.1 g/dL (13.5-17.5); Mean Corpuscular HGB 26.1 pg (26.0-34.0); Mean Corpuscular Volume 84 fL (80-100); Mean Platelet Volume 11.1 fL (9.1-12.4); Platelet Count 151 K/mm3 (150-400); RDW Coefficient Variation 17.5 % (11.7-14.2); RDW Standard Deviation 53.5 fL (35.1-46.3); Red Blood Cell Count 3.87 M/mm3 (4.30-5.90); White Blood Cell Count 9.49 K/mm3 (4.00-11.30)
[2024-07-09 04:39] LABS: Albumin, Blood 2.5 g/dL (3.4-5.0); Anion Gap 14 mmol/L (3-11); Blood Urea Nitrogen 46 mg/dL (8-24); Bun/Creatinine Ratio 10.6 (12.0-20.0); CO2, Blood 29 mmol/L (21-32); Calcium, Blood 8.7 mg/dL (8.5-10.1); Chloride, Blood 95 mmol/L (98-108); Creatinine, Blood 4.34 mg/dL (0.60-1.20); Glomerular Filtration Rate 15 (60-); Glucose, Blood 290 mg/dL (70-99); Magnesium, Blood 2.1 mg/dL (1.6-2.4); Phosphorus, Blood 7.3 mg/dL (2.5-4.9); Potassium, Blood 4.7 mmol/L (3.5-5.5); Sodium, Blood 133 mmol/L (136-145)
--- NOTE | 2024-07-09 06:23 | NUR ---
PT STABLE THROUGHOUT THE SHIFT. VITAL SIGNS WNL. PT DID C/O OF DIZZINESS WHEN BP WAS IN THE 120s/80s RANGE WHICH RESOLVED WHEN SBP CLIMBED BACK TO 140s. PT WAS MORE COOPERATIVE AND CALM THIS SHIFT AND LESS IRRITABLE/ARGUMENTATIVE. PT RADIAL PUNCTURE SITE REMAINS INTACT AND WNL. NO C/O CP OR SOB. PT IS ANXIOUS OUT DISCHARGE PLANNING AND HOUSING, SO HE IS EAGER FOR D/C. PT REMAINS INDEPENDENT WITH ADLS ABLE TO TRANSFER SELF FROM BED TO W/C AND THEN TO THE BR.
[2024-07-09] MEDS ORDERED: Anticoagulant Sod Citrate Soln 3 ML SYR INJ PRN (07:40)
--- NOTE | 2024-07-09 08:40 | NUR ---
NURSE NOTE CARDIOLOGY ROUNDED ON PATIENT AND SIGNED OFF ON DISCHAGRE FROM THEIR STANDPOINT. PT WAS WHEELED DOWN TO DIALYSIS IN HIS BED AT 0835.
[2024-07-09] MEDS ORDERED: Nicotine 7 MG PATCH TOP SCH (09:00)
[2024-07-09] MEDS ORDERED: FURO80 PO (12:48)
--- NOTE | 2024-07-09 13:31 | NUR ---
NURSE NOTE PATIENT PERSONAL BELONGING GATHERED, DISCHARGE INSTRUCTIONS WENT OVER WITH PATIENT. ROASTER HELPER WHEELED HIM OUT TO TRANSPORT.
== END 2024-07-09 13:45 | disposition home or self-care (01) | DRG 321 ==
LOC: ER 09:34 → PCU 13:30
PROVIDERS: Emergency Medicine; Internal Medicine Cardiovascular Disease; Internal Medicine Nephrology; Physician Assistant; ADMIT Hospitalist
PROC: 027034Z Dilation of Coronary Artery, One Artery with Drug-eluting Intraluminal Device, Percutaneous Approach (ICD-10-PCS; principal; 2024-07-08)
PROC: B2111ZZ Fluoroscopy of Multiple Coronary Arteries using Low Osmolar Contrast (ICD-10-PCS; 2024-07-08)
PROC: 4A023N7 Measurement of Cardiac Sampling and Pressure, Left Heart, Percutaneous Approach (ICD-10-PCS; 2024-07-08)
DX: T82.855A Stenosis of coronary artery stent, initial encounter (principal); I21.4 Non-ST elevation (NSTEMI) myocardial infarction; I50.23 Acute on chronic systolic (congestive) heart failure; N18.6 End stage renal disease; I13.2 Hypertensive heart and chronic kidney disease with heart failure and with stage 5 chronic kidney disease, or end stage renal disease; E87.1 Hypo-osmolality and hyponatremia; I16.1 Hypertensive emergency; F15.10 Other stimulant abuse, uncomplicated; F17.210 Nicotine dependence, cigarettes, uncomplicated; E87.5 Hyperkalemia; I05.0 Rheumatic mitral stenosis; E11.22 Type 2 diabetes mellitus with diabetic chronic kidney disease; I25.119 Atherosclerotic heart disease of native coronary artery with unspecified angina pectoris; E11.51 Type 2 diabetes mellitus with diabetic peripheral angiopathy without gangrene; E78.5 Hyperlipidemia, unspecified; D63.1 Anemia in chronic kidney disease; I27.20 Pulmonary hypertension, unspecified; I25.2 Old myocardial infarction; Z99.2 Dependence on renal dialysis; Z79.82 Long term (current) use of aspirin; Z79.4 Long term (current) use of insulin; Z89.512 Acquired absence of left leg below knee; Z79.02 Long term (current) use of antithrombotics/antiplatelets; Z71.6 Tobacco abuse counseling; Z71.51 Drug abuse counseling and surveillance of drug abuser; Z95.5 Presence of coronary angioplasty implant and graft
CPT/HCPCS: 36415; 71046; 76705; 76937; 80053; 80061; 80069; 82533; 82947; 83690; 83735; 84100; 84484; 85025; 85027; 85347; 85520; 85610; 85730; 93005; 93010; 93306; 93454; 93458; 94762; 96374; 96375; 99152; 99153; 99285-25; A9270; C1725; C1769; C1874; C1887; C1894; C9600; J1644; J1815; J2250; J2405; J3010; J7030; J7050; Q9967

== ENCOUNTER 2024-07-15 14:06 | Observation (INO) | payer MEDICARE, OTHER ==
[~2024-07-15] VITALS: Ht 170.2 cm; Wt 92.0 kg
[2024-07-15] VITALS (12 sets, daily range): BP systolic 133–162; BP diastolic 51–87
[~2024-07-15 14:06] MED LIST changes: +FURO80 PO; +NITR.4SL SL
[2024-07-15 14:48] LABS: BASOPHILS ABSOLUTE AUTO 0.07 K/mm3 (0.00-0.23); BASOPHILS PERCENT AUTO 1 % (0-2); EOSINOPHILS ABSOLUTE AUTO 0.09 K/mm3 (0.00-0.68); EOSINOPHILS PERCENT AUTO 1 % (0-6); Hematocrit 34.7 % (37.0-53.0); Hemoglobin 10.9 g/dL (13.5-17.5); IMMATURE GRAN ABSOLUTE AUTO 0.06 K/mm3 (0.00-0.10); IMMATURE GRAN PERCENT AUTO 1 % (0-1); LYMPHOCYTES ABSOLUTE AUTO 1.01 K/mm3 (0.84-5.20); LYMPHOCYTES PERCENT AUTO 11 % (21-46); MONOCYTES ABSOLUTE AUTO 0.87 K/mm3 (0.16-1.47); MONOCYTES PERCENT AUTO 9 % (4-13); Mean Corpuscular HGB 25.8 pg (26.0-34.0); Mean Corpuscular HGB Conc 31.4 g/dL (31.5-36.5); Mean Corpuscular Volume 82 fL (80-100); Mean Platelet Volume 11.6 fL (9.1-12.4); NEUTROPHILS ABSOLUTE AUTO 7.15 K/mm3 (1.96-9.15); NEUTROPHILS PERCENT AUTO 77 % (41-73); Platelet Count 232 K/mm3 (150-400); RDW Coefficient Variation 17.8 % (11.7-14.2); RDW Standard Deviation 52.1 fL (35.1-46.3); Red Blood Cell Count 4.22 M/mm3 (4.30-5.90); White Blood Cell Count 9.25 K/mm3 (4.00-11.30)
[2024-07-15] MEDS ORDERED: Clopidogrel Bisulfate 75 MG Tab PO ONE (15:05)
[2024-07-15] MEDS ORDERED: Aspirin 81 MG TabEC PO ONE (15:05)
[2024-07-15] MEDS ORDERED: Carvedilol 25 MG Tab PO ONE (15:05)
[2024-07-15 15:18] LABS: Influenza A, PCR NEGATIVE (NEGATIVE); Influenza B, PCR NEGATIVE (NEGATIVE); Resp Syncytial Virus, PCR NEGATIVE (NEGATIVE); SARS-Cov-2 (COVID-19) PCR, MMC NEGATIVE (NEGATIVE)
[2024-07-15 15:33] LABS: Albumin, Blood 2.6 g/dL (3.4-5.0); Albumin/Globulin Ratio 0.7 (0.8-1.8); Bilirubin, Total 0.4 mg/dL (0.1-1.0); Bun/Creatinine Ratio 15.8 (12.0-20.0); Creatinine, Blood 5.52 mg/dL (0.60-1.20); Globulin, Blood 3.8 g/dL (2.2-4.0); Potassium, Blood 6.1 mmol/L (3.5-5.5); Total Protein, Blood 6.4 g/dL (6.4-8.2)
[2024-07-15] MEDS ORDERED: CALCIUM GLUC IN NACL, ISO-OSM 100 ML IV ONE (15:35)
[2024-07-15] MEDS ORDERED: Insulin Regular 100 Unit/ML 1ML Dose IV ONE (15:40)
[2024-07-15] MEDS ORDERED: FLU VACC TS2024-25(6MOS UP)/PF 45 MCG/0.5 ML SYRINGE IM SCH (16:20)
[2024-07-15] MEDS ORDERED: Nitroglycerin 0.4 MG SUBL SL PRN (16:25)
[2024-07-15] MEDS ORDERED: HydrALAZINE HCl 25 MG Tab PO SCH (17:00)
[2024-07-15] MEDS ORDERED: Nicotine 14 MG PATCH TOP SCH (17:00)
[2024-07-15] MEDS ORDERED: Carvedilol 25 MG Tab PO SCH ×2 (17:00)
[2024-07-15] MEDS ORDERED: Loperamide HCl 2 MG Cap PO PRN (17:00)
[2024-07-15] MEDS ORDERED: Atorvastatin 40 MG Tab PO SCH (18:00)
--- NOTE | 2024-07-15 18:17 | NUR ---
CALLED DR PAREDES- PT H&P CLEARLY MENTIONS DNR STATUS. PT ARRIVED ON MED FLOOR WITH ORDER FOR FULL CODE. DR PAREDES GAVE VERBAL ORDER TO CHANGE CODE STATUS TO DNR.
--- NOTE | 2024-07-15 19:37 | NUR ---
SHIFT SUMMARY- PT ADMITTED THROUGH THE ED, HE ARRIVED ON MED ZELDA AT 1815 AND LEFT FOR DIALYSIS AT 1840. ADMIT ASSESSMENT NOT COMPLETED. PT HAS SOME RED IRRITATED SKIN ON GROIN AND BUTTOX POSSIBLY R/T LOOSE STOOLS. PT APPEARS ALERT AND ORIENTED AD CAN SWALLOW MEDS WHOLE WITH WATER. PO BP MEDS HELD PER SECURITIES CONSULTANT DECEMBRE THOSE MEDS WERE PROVIDED TO HER SHE WILL ADMINISTER IF STILL INDICATED AFTER 1 HOUR OF DIALYSIS. REPORT PASSED ON TO NIGHT CIELO WALTERS IN REPORT. PT PLACED ON TELE SIN AT 70 PRIOR TO LEAVING FOR DIALYSIS. SUPERVISOR CLAM BED AWARE TO CALL SHAILESH FOR ANY CONCERNS IN THE NEXT 2 HOURS. LUNG SOUNDS ARE COARSE IN THE RIGHT SIDE UPON PT ARRIVAL IN DIALYSIS.
[2024-07-15] MEDS ORDERED: Losartan Potassium 50 MG Tab PO SCH ×2 (21:00)
[2024-07-15] MEDS ORDERED: Docusate Sodium 100 MG Cap PO SCH (21:00)
[2024-07-15] MEDS ORDERED: Insulin Glargine-Yfgn 100 Unit/mL 3 ML SYR SC SCH (21:00)
[2024-07-15] MEDS ORDERED: Lactobacil 2-S.Thermo-Bifido 1 1 Cap PO SCH (21:00)
[2024-07-15] MEDS ORDERED: Sennosides 8.6 MG Tab PO SCH (21:00)
--- NOTE | 2024-07-15 22:02 | NUR ---
UPDATE THIS RN BREAK RN FOR PRIMARY NURSE. PT RECENTLY BACK FROM DIALYSIS, THIS RN TO COMPLETE MEDICATIONS. PT WITH 30 UNITS OF LONG ACTING GLARGINE DUE, CBG 184 WHICH IS DOWN FROM 1613 CBG OF 441. THIS RN CALLED HOSPITALIST TO SEE IF OKAY TO GIVE FULL DOSE. HOSPITALIST OKAY'D FOR FULL DOSE OF HS INSULIN. PT BP 150/87, HR 74; PT WITH BLOOD PRESSURE MEDICATION PER EMAR DUE. HOSPITALIST ALSO OKAY'D FOR ALL THREE BLOOD PRESSURE MEDICATIONS TO BE ADMINISTERED PER ORDERS. PRIMARY RN UPDATED ABOUT CALL AND ORDERS. PRIMARY RN RETURNED AND ASSUMED CARE OF PT.
[2024-07-16] VITALS (22 sets, daily range): BP systolic 128–195; BP diastolic 57–90
--- NOTE | 2024-07-16 04:34 | NUR ---
SHIFT SUMMARY ADMITTED FOR HYPERKALEMIA. DNR CODE. HE HAD MISSED HIS LAST DIALYSIS APPOINTMT (NORMALLY TUES, THURS, SAT). OLD LEFT BKA, HE SELF TRANSFERS TO A WHEELCHAIR @ [facility]. HE STATES HE IS TOO WEAK TO PERFORM THIS TRANSFER LATELY. HE GETS 2 HOURS PER DAY ONLY WITH CAREGIVERS. HE STATES THAT HIS CAREGIVERS CANNOT DEAL WITH HIS MEDICATIONS. HE HAS NO TRANSPORTATION AND IS STRUGGLING TO GET HIS MEDICATIONS PICKED UP AND TO GET FOOD. HX OF DRUG USE MAKES PLACEMENT PROBLEMATIC. HE IS ON RA. TELEMETRY: NSR @ 72 BPM. A&O X3-4. ACHS CBG'S. 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 DIALYSIS PERFORMED AT BEGINNING OF THIS SHIFT.
[2024-07-16 05:36] LABS: BASOPHILS ABSOLUTE AUTO 0.07 K/mm3 (0.00-0.23); BASOPHILS PERCENT AUTO 1 % (0-2); EOSINOPHILS ABSOLUTE AUTO 0.18 K/mm3 (0.00-0.68); EOSINOPHILS PERCENT AUTO 2 % (0-6); Hemoglobin 10.3 g/dL (13.5-17.5); IMMATURE GRAN ABSOLUTE AUTO 0.07 K/mm3 (0.00-0.10); IMMATURE GRAN PERCENT AUTO 1 % (0-1); LYMPHOCYTES PERCENT AUTO 11 % (21-46); MONOCYTES ABSOLUTE AUTO 0.79 K/mm3 (0.16-1.47); MONOCYTES PERCENT AUTO 9 % (4-13); Mean Corpuscular HGB 26.1 pg (26.0-34.0); Mean Corpuscular HGB Conc 32.2 g/dL (31.5-36.5); Mean Corpuscular Volume 81 fL (80-100); Mean Platelet Volume 10.9 fL (9.1-12.4); NEUTROPHILS ABSOLUTE AUTO 6.69 K/mm3 (1.96-9.15); NEUTROPHILS PERCENT AUTO 76 % (41-73); Platelet Count 206 K/mm3 (150-400); RDW Coefficient Variation 17.7 % (11.7-14.2); RDW Standard Deviation 51.8 fL (35.1-46.3); Red Blood Cell Count 3.94 M/mm3 (4.30-5.90)
[2024-07-16 05:55] LABS: Albumin, Blood 2.4 g/dL (3.4-5.0); Anion Gap 15 mmol/L (3-11); Blood Urea Nitrogen 72 mg/dL (8-24); Bun/Creatinine Ratio 15.7 (12.0-20.0); CO2, Blood 27 mmol/L (21-32); Chloride, Blood 95 mmol/L (98-108); Creatinine, Blood 4.58 mg/dL (0.60-1.20); Glomerular Filtration Rate 14 (60-); Glucose, Blood 377 mg/dL (70-99); Magnesium, Blood 1.9 mg/dL (1.6-2.4); Phosphorus, Blood 6.3 mg/dL (2.5-4.9); Potassium, Blood 5.1 mmol/L (3.5-5.5); Sodium, Blood 132 mmol/L (136-145)
[2024-07-16] MEDS ORDERED: Calcium Acetate 667 MG Gel Cap PO SCH (08:30)
--- NOTE | 2024-07-16 08:42 | NUR ---
CALLED JAMIL IN DIALYSIS- PT HAS ORDER FOR LOKELMA, LAST NIGHT DIALYSIS PULLED THE POTASSIUM DOWN. SPOKE TO OR RN AND SHE RECOMENDED HOLDING LOKELMA, THEY WILL PULL POTASSIUM IN DIALYSIS THIS AM.
--- NOTE | 2024-07-16 08:49 | NUR ---
CALLED DR PAREDES- PT HAS AC/HS BG CHECKS. BG 350 THIS AM NO ORDER FOR INSULIN. RECIEVED AC LOW SS HUMALOG, FIRST DOSE NOW.
[2024-07-16] MEDS ORDERED: Insulin Human Lispro 100 Units/ML 3ML Syringe SC SCH (08:50)
[2024-07-16] MEDS ORDERED: Aspirin 81 MG Chew PO SCH ×2 (09:00)
[2024-07-16] MEDS ORDERED: Heparin Sodium,Porcine 5,000 UNIT/0.5 ML SDV SC SCH (09:00)
[2024-07-16] MEDS ORDERED: Clopidogrel Bisulfate 75 MG Tab PO SCH ×2 (09:00)
[2024-07-16] MEDS ORDERED: Atorvastatin 40 MG Tab PO SCH (09:00)
[2024-07-16] MEDS ORDERED: Sodium Zirconium Cyclosilicate 10 GM Packet PO SCH (09:00)
--- NOTE | 2024-07-16 18:14 | NUR ---
Pt alert and oriented times 4, cooperative with care. Expresses frustration about difficulty finding placement in [facility] when it is time to discharge, social service director on board. Dialysis today, tolerated well. AM potassium was 5.1 before dialysis. Good appetite on renal and consistant carb diet, no bowel movement this shift.
[2024-07-17] VITALS (13 sets, daily range): BP systolic 155–209; BP diastolic 72–90
[2024-07-17 05:54] LABS: Hematocrit 33.3 % (37.0-53.0); Hemoglobin 10.3 g/dL (13.5-17.5)
[2024-07-17 06:16] LABS: Albumin, Blood 2.3 g/dL (3.4-5.0); Anion Gap 10 mmol/L (3-11); Blood Urea Nitrogen 49 mg/dL (8-24); Bun/Creatinine Ratio 12.4 (12.0-20.0); CO2, Blood 31 mmol/L (21-32); Calcium, Blood 9.2 mg/dL (8.5-10.1); Chloride, Blood 98 mmol/L (98-108); Creatinine, Blood 3.96 mg/dL (0.60-1.20); Glomerular Filtration Rate 16 (60-); Glucose, Blood 213 mg/dL (70-99); Magnesium, Blood 1.8 mg/dL (1.6-2.4); Phosphorus, Blood 5.9 mg/dL (2.5-4.9); Potassium, Blood 4.3 mmol/L (3.5-5.5); Sodium, Blood 135 mmol/L (136-145)
--- NOTE | 2024-07-17 06:43 | NUR ---
SHIFT SUMMARY PT IS POLITE AND RECEPTIVE TO CARE. HAS VALID CONCERNS AND STRESS ABOUT LIVING SITUATIONS WHEN DISCARGEDBED. HE EXPRESSED INTEREST IN LEARNING INSULIN PROPER INSULIN EDUCATION AND ADMINISTRATION. PT TOOK HS MEDICATIONS AND TALKED IN DEPTH ABOUT MAKING POOR CHOICES AND TRUSTING THE WRONG PEOPLE. BED IN LOWEST POSITION, CALL LIGHT WITHIN REACH, RAILS TIMES 2.
[2024-07-17] MEDS ORDERED: NITR.4SL SL (13:22)
[2024-07-17] MEDS ORDERED: DOCU100 PO (13:24)
[2024-07-17] MEDS ORDERED: HYDRA25 PO (13:25)
[2024-07-17] MEDS ORDERED: LANTUS SOL100 UNIT/1 SC (13:26)
[2024-07-17] MEDS ORDERED: Nicoderm Cq1 EAC1 TOP (13:28)
[2024-07-17] MEDS ORDERED: LOKELMA10 GM PO (13:29)
[2024-07-17] MEDS ORDERED: SENNA LAXATIVE8.6 MG PO (13:29)
--- NOTE | 2024-07-17 17:35 | NUR ---
DISCHARGE: PT D/C @1730 VIA WHEELCHAIR WITH SUNSHINE TAXI. PT TO GO BACK TO [facility] TO PACK UP ROOM THEN HAVE CAREGIVER ARRIVE TO HELP TOMORROW. PT NUMBER PLACED ON GROUNDSKEEPER PORTER 3 DESK TO ORDER HOME HEALTH TOMORROW 07-18-24. MEDICATIONS FAXED TO [facility]. IV REMOVED BY CENTRAL OFFICE REPAIRER SUPERVISOR W/O COMPLICATIONS. TELE SENT BACK. NO QUESTIONS AT TIME OF D/C.
== END 2024-07-17 17:25 | disposition home health service (06) ==
LOC: ER 14:06 → MEDS 14:07 → ENPENDDIS 07-17 13:33 → MEDS 07-17 17:25
PROVIDERS: Emergency Medicine; Internal Medicine Nephrology; ADMIT Internal Medicine
DX: E87.5 Hyperkalemia (principal); E87.70 Fluid overload, unspecified; I13.2 Hypertensive heart and chronic kidney disease with heart failure and with stage 5 chronic kidney disease, or end stage renal disease; E11.22 Type 2 diabetes mellitus with diabetic chronic kidney disease; I50.32 Chronic diastolic (congestive) heart failure; N18.6 End stage renal disease; E78.5 Hyperlipidemia, unspecified; I25.10 Atherosclerotic heart disease of native coronary artery without angina pectoris; I25.2 Old myocardial infarction; D64.9 Anemia, unspecified; F17.210 Nicotine dependence, cigarettes, uncomplicated; Z66 Do not resuscitate; Z99.2 Dependence on renal dialysis; Z79.4 Long term (current) use of insulin; Z79.02 Long term (current) use of antithrombotics/antiplatelets; Z79.82 Long term (current) use of aspirin; Z79.899 Other long term (current) drug therapy; Z59.89 Other problems related to housing and economic circumstances; Z91.148 Patient's other noncompliance with medication regimen for other reason; Z95.5 Presence of coronary angioplasty implant and graft; Z89.512 Acquired absence of left leg below knee
CPT/HCPCS: 0241U; 36415; 71045; 80053; 80069; 82010; 82947; 83735; 84145; 85014; 85018; 85025; 93005; 93010; 96372; 96374; 99285-25; A9270; G0257; G0378; J0612; J1644; J1815

== ENCOUNTER 2024-07-18 15:11 | Emergency (ER) | payer MEDICARE, OTHER ==
[~2024-07-18] VITALS: Ht 182.9 cm; Wt 85.3 kg
[~2024-07-18 15:11] MED LIST changes: +DOCU100 PO; +HYDRA25 PO; +LANTUS SOL100 UNIT/1 SC; +LOKELMA10 GM PO; +Nicoderm Cq1 EAC1 TOP; +SENNA LAXATIVE8.6 MG PO
[2024-07-19] MEDS ORDERED: Oxymetazoline 0.05% Nasal Relief Spray 15mL BTL ONE (00:15)
== END 2024-07-19 00:42 | disposition home or self-care (01) ==
LOC: ER 15:11
DX: R04.0 Epistaxis (principal); Z79.899 Other long term (current) drug therapy; Z79.82 Long term (current) use of aspirin; E11.22 Type 2 diabetes mellitus with diabetic chronic kidney disease; I13.2 Hypertensive heart and chronic kidney disease with heart failure and with stage 5 chronic kidney disease, or end stage renal disease; N18.6 End stage renal disease; I50.20 Unspecified systolic (congestive) heart failure; F17.210 Nicotine dependence, cigarettes, uncomplicated
CPT/HCPCS: 99283; A9270

== ENCOUNTER 2024-09-13 21:52 | Inpatient (IN) | payer MEDICARE, OTHER ==
[~2024-09-13] VITALS: Ht 182.9 cm; Wt 95.0 kg
[~2024-09-13 21:52] MED LIST changes: +MICOTRIN AC85 G4 TOP
[2024-09-13 22:36] LABS: BASOPHILS ABSOLUTE AUTO 0.04 K/mm3 (0.00-0.23); BASOPHILS PERCENT AUTO 0 % (0-2); EOSINOPHILS PERCENT AUTO 1 % (0-6); Hematocrit 26.8 % (37.0-53.0); Hemoglobin 8.1 g/dL (13.5-17.5); IMMATURE GRAN ABSOLUTE AUTO 0.06 K/mm3 (0.00-0.10); IMMATURE GRAN PERCENT AUTO 1 % (0-1); LYMPHOCYTES ABSOLUTE AUTO 0.93 K/mm3 (0.84-5.20); LYMPHOCYTES PERCENT AUTO 9 % (21-46); MONOCYTES PERCENT AUTO 13 % (4-13); Mean Corpuscular HGB 23.3 pg (26.0-34.0); Mean Corpuscular HGB Conc 30.2 g/dL (31.5-36.5); Mean Corpuscular Volume 77 fL (80-100); NEUTROPHILS ABSOLUTE AUTO 7.86 K/mm3 (1.96-9.15); NEUTROPHILS PERCENT AUTO 76 % (41-73); Platelet Count 157 K/mm3 (150-400); RDW Coefficient Variation 20.3 % (11.7-14.2); Red Blood Cell Count 3.47 M/mm3 (4.30-5.90); White Blood Cell Count 10.29 K/mm3 (4.00-11.30)
[2024-09-13 22:40] LABS: Mean Platelet Volume 10.6 fL (9.1-12.4)
[2024-09-13 22:51] LABS: International Normalized Ratio 1.17; Prothrombin Time Results 12.4 Sec (9.7-11.5)
[2024-09-13 23:03] LABS: Albumin, Blood 2.1 g/dL (3.4-5.0); Albumin/Globulin Ratio 0.5 (0.8-1.8); Bun/Creatinine Ratio 18.6 (12.0-20.0); Calcium, Blood 9.2 mg/dL (8.5-10.1); Creatinine, Blood 7.54 mg/dL (0.60-1.20); Globulin, Blood 4.1 g/dL (2.2-4.0); Total Protein, Blood 6.2 g/dL (6.4-8.2)
[2024-09-14] VITALS (18 sets, daily range): BP systolic 125–167; BP diastolic 64–83
[2024-09-14] MEDS ORDERED: Ondansetron HCl 2 MG / ML 2ML Vial IV PRN (03:20)
[2024-09-14] MEDS ORDERED: FLU VACC TS2024-25(6MOS UP)/PF 45 MCG/0.5 ML SYRINGE IM ONE (03:20)
[2024-09-14 03:55] LABS: Base Excess Venous 1.5 mmol/L; Bicarbonate Venous 25.7 mmol/L (24.0-30.0); pH Blood Venous 7.41 (7.34-7.37)
[2024-09-14] MEDS ORDERED: Dextrose 50% 50 ML Vial IV ONE (04:00)
[2024-09-14] MEDS ORDERED: Insulin Regular 100 Unit/ML 1ML Dose IV ONE (04:00)
[2024-09-14] MEDS ORDERED: Sodium Zirconium Cyclosilicate 10 GM Packet PO ONE (04:00)
[2024-09-14] MEDS ORDERED: CALCIUM GLUC IN NACL, ISO-OSM 50 ML IV ONE (04:05)
[2024-09-14 04:59] LABS: Influenza A, PCR NEGATIVE (NEGATIVE); Influenza B, PCR NEGATIVE (NEGATIVE); Resp Syncytial Virus, PCR NEGATIVE (NEGATIVE)
--- NOTE | 2024-09-14 06:28 | NUR ---
ADMIT NOTE/SHIFT SUMMARY REPORT WAS RECEIVED FROM ER. PT WAS BROUGHT DOWN AND TRANSPORTED ONTO THE BED. PT WAS ORIENTED TO THE ROOM AND STAFF. ALERT ORIENTED X 4 HES BLIND IN BILAT EYES. C/O BACK PAIN. DR. WITT AND DR. FARNSWORTH CAME IN TO SEE THE PT. HE HAS REDNESS TO HIS GROIN, RASH TO HIS LT FOOT, RT SIDED BKA, AND BILAT ARMS BRUISES WITH SCABS. HIS POTASSIUM LEVEL THIS AM IN ER WAS 6.0 SO HE RECEIVED CAlcium gluconate, d50, humulin r and lokelma. dr. farnsworth said that pt will go to dialysis today. resting at this time with call light in reach
[2024-09-14 06:38] LABS: SARS-Cov-2 (COVID-19) PCR, MMC POSITIVE (NEGATIVE)
[2024-09-14 07:33] LABS: BASOPHILS ABSOLUTE AUTO 0.05 K/mm3 (0.00-0.23); BASOPHILS PERCENT AUTO 1 % (0-2); EOSINOPHILS ABSOLUTE AUTO 0.17 K/mm3 (0.00-0.68); EOSINOPHILS PERCENT AUTO 2 % (0-6); Hematocrit 26.5 % (37.0-53.0); Hemoglobin 8.2 g/dL (13.5-17.5); IMMATURE GRAN ABSOLUTE AUTO 0.08 K/mm3 (0.00-0.10); IMMATURE GRAN PERCENT AUTO 1 % (0-1); LYMPHOCYTES ABSOLUTE AUTO 1.09 K/mm3 (0.84-5.20); LYMPHOCYTES PERCENT AUTO 10 % (21-46); MONOCYTES ABSOLUTE AUTO 1.63 K/mm3 (0.16-1.47); MONOCYTES PERCENT AUTO 15 % (4-13); Mean Corpuscular HGB 23.6 pg (26.0-34.0); Mean Corpuscular HGB Conc 30.9 g/dL (31.5-36.5); Mean Corpuscular Volume 76 fL (80-100); NEUTROPHILS ABSOLUTE AUTO 7.95 K/mm3 (1.96-9.15); NEUTROPHILS PERCENT AUTO 73 % (41-73); Platelet Count 166 K/mm3 (150-400); RDW Coefficient Variation 20.1 % (11.7-14.2); RDW Standard Deviation 55.3 fL (35.1-46.3); Red Blood Cell Count 3.48 M/mm3 (4.30-5.90); White Blood Cell Count 10.97 K/mm3 (4.00-11.30)
[2024-09-14 07:35] LABS: Mean Platelet Volume 11.3 fL (9.1-12.4)
[2024-09-14] MEDS ORDERED: Nitroglycerin 0.4 MG SUBL SL PRN (07:50)
[2024-09-14] MEDS ORDERED: Remdesivir (EUA) 200 MG in NS 250 ML IV ONE (07:55)
[2024-09-14] MEDS ORDERED: Carvedilol 25 MG Tab PO SCH (08:00)
[2024-09-14 08:05] LABS: Albumin, Blood 2.1 g/dL (3.4-5.0); Albumin/Globulin Ratio 0.5 (0.8-1.8); Bilirubin, Total 0.9 mg/dL (0.1-1.0); Bun/Creatinine Ratio 18.5 (12.0-20.0); Calcium, Blood 9.4 mg/dL (8.5-10.1); Globulin, Blood 4.4 g/dL (2.2-4.0); Potassium, Blood 5.6 mmol/L (3.5-5.5); Total Protein, Blood 6.5 g/dL (6.4-8.2)
[2024-09-14] MEDS ORDERED: Calcium Acetate 667 MG Gel Cap PO SCH (08:30)
[2024-09-14] MEDS ORDERED: Sevelamer Carbonate 800 MG Tab PO SCH (08:30)
[2024-09-14] MEDS ORDERED: HydrALAZINE HCl 25 MG Tab PO SCH (09:00)
[2024-09-14] MEDS ORDERED: Heparin Sodium 5000 Units/ML 1ML MDV SC SCH (09:00)
[2024-09-14] MEDS ORDERED: Aspirin 81 MG Chew PO SCH (09:00)
[2024-09-14] MEDS ORDERED: Furosemide 80 MG Tab PO SCH (09:00)
[2024-09-14] MEDS ORDERED: Losartan Potassium 50 MG Tab PO SCH (09:00)
[2024-09-14] MEDS ORDERED: Docusate Sodium 100 MG Cap PO SCH (09:00)
[2024-09-14] MEDS ORDERED: Nicotine 14 MG PATCH TOP SCH (09:00)
[2024-09-14] MEDS ORDERED: Clopidogrel Bisulfate 75 MG Tab PO SCH (09:00)
[2024-09-14] MEDS ORDERED: Sennosides 8.6 MG Tab PO SCH (09:00)
--- NOTE | 2024-09-14 09:57 | NUR ---
RECEIVED CALL FROM [employer] TO ADVISE OF [facility] NOTED ON [employer]. DR PINEDO CALLED AND ADVISED OF CARDIAC RTHYMN. DIALYSIS CALLED AND ADVISED OF [facility]JEMITY RTHYMN.
[2024-09-14] MEDS ORDERED: Darbepoetin Alfa In Albumn Sol 40 MCG/0.4 ML SC SCH (12:00)
--- NOTE | 2024-09-14 16:44 | NUR ---
SHIFT REPORT: PATIENT A/O X 4, PATIENT HAD DIALYSIS THIS MORNING. PATIENT IS ABLE TO MAKE HIS NEEDS KNOWN. PATIENT IS COVID POSITIVE AND RECEIVED IV REMDESIVIR. PATIENT COMPLAINS OF WEAKNESS AND INABLILITY TO ASSIST WHEN MOVING IN BED. PATIENT HAS A LEFT BKA. PATIENT WAS SENT IN BY [facility] FOR REHAB AFTER HIS BKA HOWEVER STATES WHEN HE LEAVES THERE HE HOUSELESS BUT HAS BEEN WORKING WITH HIS BOARD MIXER TENDER TO GET A HOME HOWEVER HE STATES HE DOES NOT HAVE ONE AT THIS TIME.
[2024-09-14] MEDS ORDERED: Insulin Glargine-Yfgn 100 Unit/mL 3 ML SYR SC SCH (21:00)
[2024-09-14] MEDS ORDERED: Lidocaine 4% 1 Patch TOP PRN (23:00)
[2024-09-14] MEDS ORDERED: Acetaminophen 325 MG TABLET PO PRN (23:00)
[2024-09-15] VITALS (13 sets, daily range): BP systolic 113–176; BP diastolic 57–154
--- NOTE | 2024-09-15 03:59 | NUR ---
SHIFT SUMMARY PT ALERT ORIENTED X 4 CALLS APPROPRIATELY AND CAN VERBALIZE HIS NEEDS. HE BECOMES ANGRY AT STAFF. HE REQUESTED ANOTHER MATTRESS AND I EXPLAINED THAT WE HAVE NO OTHER MATTRESSES TO TRADE OUT. HE C/O PAIN AND REQUESTED A PAIN MED I CALLED MD AND GOT A ORDER FOR TYLENOL AND A PATCH. I ASKED HIM IF HE WANTED ANYTHING AND HE STATED NO THAT NOBODY CARES ABOUT HIM. HE SAID THAT IF NOBODY WILL HELP HIM THEN HE WILL JUST THROW HIMSELF ON THE FLOOR. HE REMAINS ON TELEMETRY AT [facility] AT 90 WITH PACS. NO C/O CHEST PAIN OR SOB THIS SHIFT. HE REMAINS ON DIALYSIS AND IS DUE TO GO TODAY. HE TESTED POSITIVE YESTERDAY FOR COVID AND IS CURRENTLY ON ISOLATION. REMAINS ON REMDESIVIR X 4 DOSES. VSS ON RA SATTING AT 96%. RESTING IN BED AT THIS TIME WITH CALL LIGHT INREACH
[2024-09-15 05:42] LABS: BASOPHILS ABSOLUTE AUTO 0.05 K/mm3 (0.00-0.23); BASOPHILS PERCENT AUTO 1 % (0-2); EOSINOPHILS ABSOLUTE AUTO 0.09 K/mm3 (0.00-0.68); EOSINOPHILS PERCENT AUTO 1 % (0-6); Hemoglobin 8.5 g/dL (13.5-17.5); IMMATURE GRAN ABSOLUTE AUTO 0.09 K/mm3 (0.00-0.10); IMMATURE GRAN PERCENT AUTO 1 % (0-1); LYMPHOCYTES ABSOLUTE AUTO 0.88 K/mm3 (0.84-5.20); LYMPHOCYTES PERCENT AUTO 8 % (21-46); MONOCYTES ABSOLUTE AUTO 1.48 K/mm3 (0.16-1.47); MONOCYTES PERCENT AUTO 14 % (4-13); Mean Corpuscular HGB 23.5 pg (26.0-34.0); Mean Corpuscular HGB Conc 30.4 g/dL (31.5-36.5); Mean Corpuscular Volume 77 fL (80-100); NEUTROPHILS PERCENT AUTO 76 % (41-73); Platelet Count 174 K/mm3 (150-400); RDW Coefficient Variation 20.1 % (11.7-14.2); RDW Standard Deviation 55.9 fL (35.1-46.3); Red Blood Cell Count 3.62 M/mm3 (4.30-5.90); White Blood Cell Count 10.79 K/mm3 (4.00-11.30)
[2024-09-15 06:18] LABS: Magnesium, Blood 1.9 mg/dL (1.6-2.4)
[2024-09-15 06:19] LABS: Albumin, Blood 1.8 g/dL (3.4-5.0); Albumin/Globulin Ratio 0.4 (0.8-1.8); Bilirubin, Total 0.8 mg/dL (0.1-1.0); Bun/Creatinine Ratio 16.7 (12.0-20.0); Calcium, Blood 9.3 mg/dL (8.5-10.1); Creatinine, Blood 5.57 mg/dL (0.60-1.20); Globulin, Blood 4.4 g/dL (2.2-4.0); Phosphorus, Blood 6.8 mg/dL (2.5-4.9); Potassium, Blood 4.5 mmol/L (3.5-5.5); Total Protein, Blood 6.2 g/dL (6.4-8.2)
[2024-09-15] MEDS ORDERED: Sodium Zirconium Cyclosilicate 10 GM Packet PO SCH (09:00)
[2024-09-15] MEDS ORDERED: Remdesivir (EUA) 100 MG in NS 250 ML IV SCH (09:00)
--- NOTE | 2024-09-15 17:36 | NUR ---
PATIENT A/OX4, VERY ANGRY AND IRRITABLE THROUGHOUT THE SHIFT. ISOLATION FOR COVID. VSS, ON RA. DIALYSIS AT BEDSIDE TODAY. L BKA, PATIENT REFUSED TO GET UP TO CHAIR TODAY. SR ON TELE, DENIES ANY CP OR PRESSURE. PLAN IS TO DC BACK TO [facility] WHEN STABLE.
[2024-09-16] VITALS (21 sets, daily range): BP systolic 131–173; BP diastolic 60–85
[2024-09-16 05:52] LABS: Hemoglobin 8.6 g/dL (13.5-17.5)
[2024-09-16 06:18] LABS: Magnesium, Blood 1.9 mg/dL (1.6-2.4)
[2024-09-16 06:19] LABS: Albumin, Blood 1.9 g/dL (3.4-5.0); Anion Gap 16 mmol/L (3-11); Blood Urea Nitrogen 94 mg/dL (8-24); Bun/Creatinine Ratio 17.2 (12.0-20.0); CO2, Blood 29 mmol/L (21-32); Calcium, Blood 9.6 mg/dL (8.5-10.1); Chloride, Blood 92 mmol/L (98-108); Creatinine, Blood 5.48 mg/dL (0.60-1.20); Glomerular Filtration Rate 11 (60-); Glucose, Blood 285 mg/dL (70-99); Phosphorus, Blood 7.6 mg/dL (2.5-4.9); Potassium, Blood 4.5 mmol/L (3.5-5.5); Sodium, Blood 132 mmol/L (136-145)
--- NOTE | 2024-09-16 06:28 | NUR ---
SHIFT SUMMARY PT HAS BEEN AWAKE MOST OF THE NIGHT,PT ON THE CALL LIGHT CONSTANTLY.CALLING FOR MULTIPLE THINGS.PT FELL ASLEEP FROM 0300 TO 0530.NO CHANGES IN ASSESSMENT NOTED FROM INITIAL ASSESSMENT.PT DENIES PAIN,DENIES NEEDS.WILL CONTINUE TO MONITOR.
[2024-09-16] MEDS ORDERED: Mineral Oil 133 ML Enema PR PRN (10:40)
[2024-09-16] MEDS ORDERED: Sod Phosphate/Sod Biphosphate 132 ML BTL PR ONE (10:50)
--- NOTE | 2024-09-16 17:43 | NUR ---
PATIENT HAD DILAYSIS TREATMENT THIS SHIFT. ENEMA GIVEN AND PATIENT DID HAVE SMALL BM. SR ON TELE, NO C/O CHEST PAIN OR PRESSURE. RECEIVED 2ND DOSE OF REMDESEVIR. IRRITABLE AT TIMES, BUT LESS DEFENSIVE THIS SHIFT. NO NEW CONCERNS TODAY. AWAITING TRANSFER BACK TO [facility] ENGINEER[facility] TECHNICIAN [facility].
[2024-09-17 02:44] VITALS: BP 151/69
[2024-09-17 06:01] LABS: Hematocrit 29.4 % (37.0-53.0); Hemoglobin 8.9 g/dL (13.5-17.5)
--- NOTE | 2024-09-17 06:11 | NUR ---
Pt doing well this shift slept fairly well, denies pain, Tele is NSR with PVC's, small BM on this shift, no UOP, snacked several times in the night, BG at HS was 160, other VS WML. Awaiting lab results.
[2024-09-17 07:39] VITALS: BP 145/62
[2024-09-17 07:48] LABS: Albumin, Blood 1.8 g/dL (3.4-5.0); Anion Gap 14 mmol/L (3-11); Blood Urea Nitrogen 61 mg/dL (8-24); Bun/Creatinine Ratio 15.1 (12.0-20.0); CO2, Blood 30 mmol/L (21-32); Calcium, Blood 9.4 mg/dL (8.5-10.1); Chloride, Blood 95 mmol/L (98-108); Creatinine, Blood 4.03 mg/dL (0.60-1.20); Glomerular Filtration Rate 16 (60-); Glucose, Blood 170 mg/dL (70-99); Phosphorus, Blood 6.1 mg/dL (2.5-4.9); Sodium, Blood 135 mmol/L (136-145)
[2024-09-17 15:18] VITALS: BP 161/76
--- NOTE | 2024-09-17 18:13 | NUR ---
SHIFT SUMMARY- PATIENT A/O X4. PATIENT HAS BEEN LAYING IN BED WITH NO CLOTHES ON. PATIENT DENIED HIS BIINDERS TODAY AND DR FARNSWORTH NOTIFIED OF REFUSAL. PATIENT ALSO REFUSED DINNER. PATIENT IS ABLE TO MOVE SELF IN BED HOWEVER IS REFUSING TO HELP NURSING STAFF WITH MOVES IN BED AND STATES "HE IS UNABLE TO DUE TO BACK PAIN AND LEG PAIN IN HIS RIGHT LEG" HOWEVER PATIENT MOVES SELF IN BED WHEN NURSE DO NOT DO WHAT HE IS REQUESING. PATIENT IS ABLE TO CALL FOR HELP AND ABLE USE URINAL WITHOUT ISSUES. DISCHAREGE PLAN BACK TO [facility] WHEN HE LIVES [place].
[2024-09-17 19:26] VITALS: BP 170/73
[2024-09-18] VITALS (15 sets, daily range): BP systolic 128–166; BP diastolic 58–74
--- NOTE | 2024-09-18 04:12 | NUR ---
SHIFT SUMMARY PATIENT HAD NO ACUTE CHANGES. AXOX 4 AND BEDREST. CBG 179. PIV INTACT. USES URINAL AT BEDSIDE. DENIES CHEST PAIN, SOB, AND N/V. VSS/AFEBRILE. LEFT BKA. FISTULA LEFT UPPER ARM. COVID-19+. CALL LIGHT IN REACH. BED IN LOWEST POSITION. WILL CONTINUE TO MONITOR UNTIL DAY SHIFT NURSE ASSUMES CARE.
[2024-09-18] MEDS ORDERED: NS 250 ML IV PRN (12:10)
[2024-09-18 13:22] LABS: Albumin, Blood 1.9 g/dL (3.4-5.0); Anion Gap 13 mmol/L (3-11); Blood Urea Nitrogen 56 mg/dL (8-24); Bun/Creatinine Ratio 15.2 (12.0-20.0); CO2, Blood 32 mmol/L (21-32); Calcium, Blood 9.1 mg/dL (8.5-10.1); Chloride, Blood 96 mmol/L (98-108); Creatinine, Blood 3.68 mg/dL (0.60-1.20); Glomerular Filtration Rate 18 (60-); Glucose, Blood 111 mg/dL (70-99); Magnesium, Blood 1.8 mg/dL (1.6-2.4); Phosphorus, Blood 5.3 mg/dL (2.5-4.9); Potassium, Blood 3.5 mmol/L (3.5-5.5); Sodium, Blood 137 mmol/L (136-145)
--- NOTE | 2024-09-18 13:28 | NUR ---
NOTE PT RECEIVED HALF DOSE OF REMDESEVIR. PT REPORTED ITCHYNESS, STOPPED IV, NOTIFIED DR. PINEDO. NO NEW ORDERS AT THIS TIME.
[2024-09-18] MEDS ORDERED: DiphenhydrAMINE HCL 25 MG Cap PO PRN (14:40)
[2024-09-18 14:42] LABS: CORONAVIRUS COVID-19 AG Negative (NEGATIVE)
--- NOTE | 2024-09-18 16:53 | NUR ---
SHIFT SUMMARY PT A&OX4. PT ADMITTED DUE TO ACUTE HYPERKALEMIA. PT POTASSIUM IS 3.5. PT HAS L BKA. REPORTS CHRONIC SPINE PAIN BUT DENIES PAIN MEDICATION. PT RECEIVED COVID SWAB, RESULTS WERE NEG. PLAN IS FOR PT RECEIEVE ANOTHER RAPID COVID SWAB IN AM, WILL PASS ON TO NIGHT NURSE. DISCHARGE MAYBE TOMORROW IS PLAN. PT BED IN LOWEST POSITION, CALL LIGHT IN REACH, PT MAKES NEEDS KNOWN. PT ON ROOM AIR, PT NOT ON TELE. PT RECEIVED DIALYSIS THIS AM. HYPERTENSIVE MEDS WERE HELD THIS AM DUE TO DIALYSIS, REPORTED TO HOLD PER DIRECT SUPPORT [facility]. VSS. PT EATS ADEQUATE.
[2024-09-19 04:30] VITALS: BP 142/49
[2024-09-19 05:44] LABS: Hematocrit 29.1 % (37.0-53.0); Hemoglobin 8.7 g/dL (13.5-17.5)
[2024-09-19 06:02] LABS: Anion Gap 14 mmol/L (3-11); Blood Urea Nitrogen 85 mg/dL (8-24); Bun/Creatinine Ratio 17.1 (12.0-20.0); CO2, Blood 31 mmol/L (21-32); Calcium, Blood 9.6 mg/dL (8.5-10.1); Chloride, Blood 95 mmol/L (98-108); Creatinine, Blood 4.97 mg/dL (0.60-1.20); Glomerular Filtration Rate 13 (60-); Glucose, Blood 196 mg/dL (70-99); Magnesium, Blood 2.1 mg/dL (1.6-2.4); Phosphorus, Blood 7.9 mg/dL (2.5-4.9); Potassium, Blood 4.8 mmol/L (3.5-5.5); Sodium, Blood 135 mmol/L (136-145)
--- NOTE | 2024-09-19 06:10 | NUR ---
SHIFT SUMMARY PATIENT HAD NO ACUTE CHANGE. AXOX 4 AND BEDREST WITH LEFT BKA. CBG 272. DENIES CHEST PAIN, SOB, AND N/V. VSS/AFEBRILE. FISTULA LEFT UPPER ARM. PIV INTACT. COVID SWAB SENT TO LAB 2 0F 2. CALL LIGHT IN REACH. BED IN LOWEST POSITION. WILL CONTINUE TO MONITOR UNTIL DAY SHIFT NURSE ASSUMES CARE.
[2024-09-19 06:37] LABS: CORONAVIRUS COVID-19 AG Negative (NEGATIVE)
[2024-09-19 07:48] VITALS: BP 156/61
[2024-09-19] MEDS ORDERED: CALCIUM ACETAT667 MG PO (10:46)
[2024-09-19] MEDS ORDERED: BENADRYL25 MG PO (10:49)
[2024-09-19] MEDS ORDERED: SEVEC800 PO (10:49)
--- NOTE | 2024-09-19 12:01 | NUR ---
DISCHARGE NOTE: PATIENT REPAIRED FOR DISCHARGE BACK TO [facility]; PATIENT'S IV WAS REMOVED, DRESSED, AND BELONGINGS COLLECTED. PATIENT'S DUKEY RIDER WAS RETURNED, BUT DID NOT LOCATE A PACK OF CIGARETTES THAT PATIENT STATES HE HAD WITH HIM AT ADMISSION. CALLED SECURITY TO SEE IF THEY HAD THEM AND THEY DID NOT. PATIENT ALSO HAD SOILED CLOTHES IN A BAG THAT WAS OBSERVED DURING DISCHARGE AND REQUESTED TO THROW AWAY AND PATIENT REFUSED. CLOTHES PLACED IN BIOBAG AND SENT WITH PATIENT. PATIENT ASSISTED INTO WHEELCHAIR WITH X2 STAFF. PAPERWORK PROVIDED TO MEDICAL TRANSPORTER, NO SIGNS OR SYMPTOMS OF DISTRESS DURING DISCHARGE.
[2024-09-20] MEDS ORDERED: Darbepoetin Alfa In Albumn Sol 40 MCG/0.4 ML SC SCH (12:00)
== END 2024-09-19 11:55 | disposition hospice, inpatient (51) | DRG 640 ==
LOC: ER 21:52 → MEDS 21:53 → ENPENDDIS 09-19 10:01 → EDPENDDIS 09-19 10:01 → MEDS 09-19 11:55
PROVIDERS: Family Medicine; Internal Medicine Nephrology; Student in an Organized Health Care Education/Training Program; ADMIT Internal Medicine
PROC: 5A1D70Z Performance of Urinary Filtration, Intermittent, Less than 6 Hours Per Day (ICD-10-PCS; principal; 2024-09-13)
PROC: 8E0ZXY6 Isolation (ICD-10-PCS; 2024-09-15)
PROC: XW033E5 Introduction of Remdesivir Anti-infective into Peripheral Vein, Percutaneous Approach, New Technology Group 5 (ICD-10-PCS; 2024-09-15)
DX: E87.5 Hyperkalemia (principal); N18.6 End stage renal disease; U07.1 COVID-19; I13.2 Hypertensive heart and chronic kidney disease with heart failure and with stage 5 chronic kidney disease, or end stage renal disease; I50.22 Chronic systolic (congestive) heart failure; N25.81 Secondary hyperparathyroidism of renal origin; I25.10 Atherosclerotic heart disease of native coronary artery without angina pectoris; Z66 Do not resuscitate; E11.22 Type 2 diabetes mellitus with diabetic chronic kidney disease; Z91.148 Patient's other noncompliance with medication regimen for other reason; E78.5 Hyperlipidemia, unspecified; D63.1 Anemia in chronic kidney disease; Z89.512 Acquired absence of left leg below knee; Z98.890 Other specified postprocedural states; E87.1 Hypo-osmolality and hyponatremia; E88.09 Other disorders of plasma-protein metabolism, not elsewhere classified; Z86.14 Personal history of Methicillin resistant Staphylococcus aureus infection; Z79.82 Long term (current) use of aspirin; Z79.899 Other long term (current) drug therapy; Z95.5 Presence of coronary angioplasty implant and graft; I25.2 Old myocardial infarction
CPT/HCPCS: 0241U; 36415; 71045; 80053; 80069; 82803; 82947; 83735; 84100; 85014; 85018; 85025; 85610; 87426-QW; 93005; 93010; 96372; 96374; 96375; 99285-25; A9270; G0378; J0248; J0612; J0881; J1644; J1815; J7050; J7799

== ENCOUNTER 2024-12-22 02:11 | Inpatient (IN) | payer MEDICARE, OTHER ==
[~2024-12-22] VITALS: Ht 182.9 cm; Wt 95.9 kg
[2024-12-22] VITALS (28 sets, daily range): BP systolic 78–123; BP diastolic 31–84
[~2024-12-22 02:11] MED LIST changes: +BENADRYL25 MG PO; +CALCIUM ACETAT667 MG PO; +GABA100 PO; +MELA3 PO; +SEVEC800 PO
[2024-12-22] MEDS ORDERED: Pantoprazole Sodium 40 MG in NS 50 ML IV SCH ×2 (03:00→06:15)
[2024-12-22] MEDS ORDERED: Pantoprazole Sodium 40 MG Injection IV ONE (03:00)
[2024-12-22] MEDS ORDERED: Ipratropium/Albuterol SulF 2.5-0.5MG/3 ML Amp INH ONE (03:10)
[2024-12-22] MEDS ORDERED: NS 1,000 ML IV SCH ×3 (03:10→23:05)
[2024-12-22 03:21] LABS: BASOPHILS ABSOLUTE AUTO 0.03 K/mm3 (0.00-0.23); BASOPHILS PERCENT AUTO 0 % (0-2); EOSINOPHILS ABSOLUTE AUTO 0.07 K/mm3 (0.00-0.68); EOSINOPHILS PERCENT AUTO 1 % (0-6); IMMATURE GRAN ABSOLUTE AUTO 0.03 K/mm3 (0.00-0.10); IMMATURE GRAN PERCENT AUTO 0 % (0-1); LYMPHOCYTES ABSOLUTE AUTO 0.88 K/mm3 (0.84-5.20); LYMPHOCYTES PERCENT AUTO 13 % (21-46); MONOCYTES ABSOLUTE AUTO 0.66 K/mm3 (0.16-1.47); MONOCYTES PERCENT AUTO 10 % (4-13); Mean Corpuscular HGB 24.5 pg (26.0-34.0); Mean Corpuscular HGB Conc 30.8 g/dL (31.5-36.5); Mean Corpuscular Volume 80 fL (80-100); Mean Platelet Volume 11.3 fL (9.1-12.4); NEUTROPHILS ABSOLUTE AUTO 5.18 K/mm3 (1.96-9.15); NEUTROPHILS PERCENT AUTO 76 % (41-73); Platelet Count 148 K/mm3 (150-400); RDW Coefficient Variation 20.6 % (11.7-14.2); Red Blood Cell Count 2.12 M/mm3 (4.30-5.90); White Blood Cell Count 6.85 K/mm3 (4.00-11.30)
[2024-12-22 03:23] LABS: Hematocrit 16.9 % (37.0-53.0); Hemoglobin 5.2 g/dL (13.5-17.5)
[2024-12-22 03:37] LABS: International Normalized Ratio 1.29; Prothrombin Time Results 13.5 Sec (9.7-11.5)
[2024-12-22 03:38] LABS: Magnesium, Blood 2.1 mg/dL (1.6-2.4)
[2024-12-22 03:55] LABS: Albumin, Blood 2.2 g/dL (3.4-5.0); Albumin/Globulin Ratio 0.6 (0.8-1.8); Bilirubin, Total 0.7 mg/dL (0.1-1.0); Calcium, Blood 9.1 mg/dL (8.5-10.1); Creatinine, Blood 5.3 mg/dL (0.60-1.20); Globulin, Blood 3.4 g/dL (2.2-4.0); Potassium, Blood 5.7 mmol/L (3.5-5.5); Total Protein, Blood 5.6 g/dL (6.4-8.2)
[2024-12-22 04:33] LABS: Base Excess Venous 2.1 mmol/L; Bicarbonate Venous 26.2 mmol/L (24.0-30.0); PCO2 Venous 43.6 mmHg (38-42)
[2024-12-22] MEDS ORDERED: Insulin Regular 100 Unit/ML 1ML Dose IV ONE (05:10)
[2024-12-22] MEDS ORDERED: Dextrose 50% 50 ML Syringe IV ONE (05:10)
[2024-12-22 05:11] LABS: Influenza A, PCR NEGATIVE (NEGATIVE); Influenza B, PCR NEGATIVE (NEGATIVE); SARS-Cov-2 (COVID-19) PCR, MMC NEGATIVE (NEGATIVE)
[2024-12-22] MEDS ORDERED: Furosemide 10 MG/ML 4ML Vial IV ONE ×2 (05:15→22:20)
[2024-12-22] MEDS ORDERED: Dextrose 50% 50 ML Vial IV ONE (05:15)
[2024-12-22] MEDS ORDERED: Ketamine HCl 100 MG / ML 5ML Vial IM ONE (05:20)
[2024-12-22] MEDS ORDERED: CefTRIAXone Sodium 1,000 MG in NS 50 ML IV ONE (05:20)
[2024-12-22 05:33] LABS: Resp Syncytial Virus, PCR POSITIVE (NEGATIVE)
[2024-12-22] MEDS ORDERED: Ondansetron 4 MG TAB PO PRN (05:45)
[2024-12-22] MEDS ORDERED: Acetaminophen 650 MG Supp PR PRN (05:50)
[2024-12-22] MEDS ORDERED: FLU VACC TS2024-25(6MOS UP)/PF 45 MCG/0.5 ML SYRINGE IM ONE (05:50)
[2024-12-22] MEDS ORDERED: Acetaminophen 325 MG TABLET PO PRN (05:50)
[2024-12-22] MEDS ORDERED: AURYXIA210 MG PO ×2 (09:24→09:25)
[2024-12-22] MEDS ORDERED: NIFE60ER PO (09:27)
--- NOTE | 2024-12-22 10:00 | NUR ---
PATIENT ADMIT TO PCU 01 A 0845 THIS AM. USED SLIDE SHEET TO TRANSFER. PATIENT ALERT AND ORIENTED. COMPLAINS OF INTERMIT ABDOMINAL CRAMPING. ABLE TO MOVE ALL EXTREMITIES. RIGHT BKA. TELE SHOWING SR WITH HR 70'S. DENIES CHEST PAIN/PRESSURE/PALPITATIONS. ASCITES NOTED. SCATTERED BRUISING. PROTNIX GTT INFUSING PER EMAR. 1 UNIT OF BLOOD TRANSFUSED IN ED AND 2 REMAINING UNITS TO BE TRANSFUSED IN DIALYSIS. PATIENT TO DIALYSIS AT 0900. LEFT ARM FISTULA. ON 4L NASAL CANNULA UPON ADMIT. SATING 100%. PATIENT PREFERS NASAL CANNULA IN MOUTH. EXPIRATORY WHEEZE AND COARSENESS HEARD THROUGOUT. BD PROTOCOL ORDERS IN PLACE AND RESPIRATORY UPDATED. BOWEL TONES PRESENT IN ALL [address] IN [address]. BLACK TARRY SMEAR UPON ADMIT. PATIENT STATES HE STILL PRODUCES URINE. URINAL PROVIDED. NPO AT TIME OF ADMIT. GI CONSULTED. NO SCOPE TODAY, PATIENT ON CONS CARB WITH HEART HEALTHY DIET. MODERATE DISTENTION WITH SOME TENDERNESS UPON PALPATION. SCATTERED BRUISING AND SCABS. LEFT FINGER SCABS WELL RIGHT FOOT/TOE SCABBING. SEE CHART PHOTOS. PATIENT FROM [facility] BUT STATES HE WAS RECENTLY SUPPOSE TO MOVE TO [facility].
[2024-12-22] MEDS ORDERED: Albumin (Human) 25gm/100ml 100 ML IV SCH (10:35)
[2024-12-22] MEDS ORDERED: Albuterol 2.5 MG/3 ML VIAL INH PRN ×2 (12:25→23:35)
[2024-12-22] MEDS ORDERED: Ipratropium/Albuterol SulF 2.5-0.5MG/3 ML Amp INH SCH (12:25)
[2024-12-22] MEDS ORDERED: Melatonin 3 MG Tab PO PRN (12:50)
[2024-12-22] MEDS ORDERED: DiphenhydrAMINE HCL 25 MG Cap PO PRN (12:55)
[2024-12-22] MEDS ORDERED: FERRIC CITRATE (AURYXIA) 210MG TABLET PO PRN (13:05)
[2024-12-22 13:14] LABS: Hematocrit 21.6 % (37.0-53.0); Hemoglobin 7.1 g/dL (13.5-17.5)
[2024-12-22] MEDS ORDERED: Gabapentin 300 MG Cap PO SCH (14:00)
--- NOTE | 2024-12-22 14:53 | NUR ---
UPDATE: PATIENT BACK FROM DIALYSIS AND BLOOD PRESSURES SOFT. MAPS TRENDING 50-60'S. PATIENT SLEEPY BUT ALERT AND ORIENTED X4. EVERARDO CALLED TO UPDATE AT 1358. ORDERS FOR MANUAL BLOOD PRESSURE. MANUAL BLOOD PRESSURE READING 90/46 AND MD NOTIFIED. ORDERS TO REPEAT BLOOD PRESSURE IN 30 MIN AND UPDATE MD. 30 MIN LATER BLOOD PRESSURE READING 90/53(60). MD UPDATED, ORDERS TO RESUME NORMAL VITAL SIGNS. H&H RECHECK AT 1999. PLAN FOR ACHS BLOOD SUGARS AND CONS CARB/EART HEALTHY DIET. CALL LIGHT IN REACH. PATIENT UPDATED. DR. MCGEE TO UNIT TO REASSESS PATIENT.
[2024-12-22] MEDS ORDERED: Insulin Human Lispro 100 Units/ML 3ML Syringe SC SCH ×2 (16:30→18:00)
[2024-12-22] MEDS ORDERED: Darbepoetin Alfa In Albumn Sol 40 MCG/0.4 ML SC SCH (17:00)
[2024-12-22] MEDS ORDERED: Carvedilol 25 MG Tab PO SCH (17:00)
[2024-12-22] MEDS ORDERED: Sevelamer Carbonate 800 MG Tab PO SCH (17:30)
[2024-12-22] MEDS ORDERED: FERRIC CITRATE (AURYXIA) 210MG TABLET PO SCH (17:30)
--- NOTE | 2024-12-22 18:29 | NUR ---
SHIFT SUMMARY: PATIENT REMAINS ALERT AND ORIENTED. SEE PREVIOUS NOTES FOR UPDATES. TELE CONTINUES TO SHOW SR HR 70-80'S. SBP 90'S. MAPS 60'S. DR. MCGEE AWARE OF PATIENTS BLOOD PRESSURES, SEE PREVIOUS NOTE. ON ROOM AIR-2L NASAL CANNULA. CONTINUES TO HAVE COARSE COUGH. INTERMIT WHEEZING. BREATHING TREATMENTS PER RESPIRATORY. BOWEL TONES PRESENT INTERMIT ABDOMINAL PAIN/FULLNESS WITH SITTING UP. ONE BLACK/TARRY BOWEL MOVMENT. URINAL AT BEDSIDE. SCD TO RIGHT CALF. EATING DINNER AT THIS TIME. ACHS BLOOD SUGARS. SEE CHART FOR WOUND PHOTOS. CALL LIGHT IN REACH DENIES NEEDS AT THIS TIME.
--- NOTE | 2024-12-22 18:53 | NUR ---
CURRENT BLOOD PRESSURE 105/43(58). DR. MCGEE CALLED TO UPDATE. PATIENT NONSYMPTOMATIC AT THIS TIME BUT IS SLEEPY AND REQUESTING TO BE LEFT ALONE SO HE CAN NAP. NO NEW ORDERS FOR THIS RN TO PLACE. H&H DRAW AT 1999. THIS RN ALSO UPDATED DR. MCGEE THAT PATIENT HAD BLACK TARRY STOOL. TELE REMAINS SR WITH HR 80'S. ON ROOM AIR AT THIS TIME SATING 95%. CALL LIGHT IN REACH.
[2024-12-22 20:23] LABS: Hematocrit 17.4 % (37.0-53.0); Hemoglobin 5.7 g/dL (13.5-17.5)
[2024-12-22] MEDS ORDERED: NS 250 ML IV PRN (20:30)
[2024-12-22] MEDS ORDERED: Sennosides 8.6 MG Tab PO SCH (21:00)
[2024-12-22] MEDS ORDERED: Docusate Sodium 100 MG Cap PO SCH (21:00)
[2024-12-22] MEDS ORDERED: Atorvastatin 40 MG Tab PO SCH (21:00)
[2024-12-22] MEDS ORDERED: Ondansetron HCl 2 MG / ML 2ML Vial IV PRN (21:09)
[2024-12-22] MEDS ORDERED: FentaNYL Citrate 50 MCG/ML 2 ML Injection IV ONE (21:35)
--- NOTE | 2024-12-22 21:39 | NUR ---
EZEKIEL PT REPORTING NAUSEA WITH SCANT AMOUNT OF BLOODY EMESIS NOTED BY PRIMARY RN. ZOFRAN GIVEN WITH GOOD EFFECT. DR. PEREZ NOTIFIED OF PT'S SOFT BLOOD PRESSURES AND DECLINING Hgb DURING HIS ROUNDING. MD AGREES WITH PLAN FOR 1 UNIT OF PRBC'S TO INFUSE NOW. MD TO LOOK INTO PT'S CHART WITH POSSIBLE EGD TONIGHT WITH INTUBATION DUE TO PT'S RESPIRATORY STATUS. ICU DINING ROOM HOST/HOSTESS UPDATED WITH PT'S CONDITION. NIGHT RESIDENT DR. BERGERON NOTIFIED WELL. AWAITING MD ORDERS AT THIS TIME.
[2024-12-22] MEDS ORDERED: Metoclopramide HCl 5MG / ML 2ML Vial IV ONE (22:25)
[2024-12-22] MEDS ORDERED: FentaNYL Citrate 50 MCG/ML 2 ML Injection IV PRN ×3 (22:55→23:35)
--- NOTE | 2024-12-22 23:05 | NUR ---
UPDATE THIS NURSE TOOK POINT OF CARE @ 1900. PT C/O 10/10 PAIN IN ABDOMEN AND L HAND DIGITS. PTs BP's CONTINUED TO BE SOFT, 90's SYSTOLIC WITH MAP 63. DR. SIMPSON NOTIFIED. DOCTOR AT BEDSIDE TO ASSESS. CRITICAL HGB RESULTED TO 5.7. 1U PRBC ORDERED WITH FENTANYL PRN FOR PAIN. WHILE WAITING FOR BLOOD PT STARTED TO VOMIT BLOOD TINGED EMESIS. DR. LANTIGUA @ BEDSIDE TO ASSESS. ONE MORE UNIT OF PRBC ORDERED PER MD TO RUN ALONGSIDE OTHER UNIT OF BLOOD. REGLAN AND 40MG IV LASIX ORDERED AND GIVEN PER MD. CURRENTLY 2300, 2U PRBCs INFUSING WITH PROTONIX. 2320 PT TRANSFERRED TO OR.
[2024-12-22] MEDS ORDERED: EpiNEPhrine 1 MG/1 ML 1ML Vial ONE (23:10)
[2024-12-22 23:47] LABS: Hematocrit 18.9 % (37.0-53.0); Hemoglobin 6.2 g/dL (13.5-17.5)
[2024-12-23] VITALS (60 sets, daily range): BP systolic 63–146; BP diastolic 34–123
[2024-12-23] MEDS ORDERED: propofoL 20 ML IV ONE
[2024-12-23] MEDS ORDERED: FentaNYL Citrate 50 MCG/ML 2 ML Injection ONE (00:01)
[2024-12-23] MEDS ORDERED: Rocuronium Bromide 10 MG/ML 5ML Injection IV ONE (00:01)
[2024-12-23] MEDS ORDERED: Lidocaine HCl 2% 20 ML MDV ONE (00:02)
[2024-12-23 00:05] LABS: Base Excess Venous 7.6 mmol/L; Bicarbonate Venous 30.8 mmol/L (24.0-30.0); PCO2 Venous 48.7 mmHg (38-42); pH Blood Venous 7.43 (7.34-7.37)
[2024-12-23] MEDS ORDERED: Phenylephrine HCl 100 MCG/ML-NS 10MLSYR (1MG/10ML) ONE (00:11)
[2024-12-23] MEDS ORDERED: Midazolam HCl 1MG / ML 2ML Vial ONE (00:12)
[2024-12-23] MEDS ORDERED: Vasopressin 20 UNITS/ML 1ML Vial ONE (00:25)
[2024-12-23] MEDS ORDERED: Phenylephrine HCl 10mg/ml 1 ml Vial ONE (00:36)
[2024-12-23] MEDS ORDERED: Sugammadex Sodium 200 MG/2ML SDV (100 MG/ML) ONE ×2 (00:41→00:51)
[2024-12-23] MEDS ORDERED: Metoclopramide HCl 5MG / ML 2ML Vial IV ONE (01:20)
--- NOTE | 2024-12-23 01:29 | NUR ---
12/23/24 0129 Eldon Campos History, Chart, Medications and Allergies reviewed before start of procedure. MONITOR INTACT WITH CONTINUOUS PULSE OXIMETRY, CONTINUOUS END TITAL CO2, 3-LEAD EKG AND INTERMITTENT BLOOD PRESSURE. PT TAKEN TO OR 2 AND INTUBATED FOR PROCEDURE. SEE ANESTHESIA NOTES. Bite Block Placed OVER ET TUBE. BP CUFF PLACED ON R CALF DUE TO 2 UNITS OF BLOOD INFUSING INTO BOTH IV'S ON RIGHT ARM AND FISTULA IN LEFT ARM. PT PLACED SUPINE WITH A PILLOW UNDER R SHOULDER AND HIPS TO PROP HIM SLIGHTLY ON HIS LEFT SIDE WITHOUT PUTTING ANY PRESSURE ON THE FISTULA.
--- NOTE | 2024-12-23 01:35 | NUR ---
LATE ENTRY FOR 2329. PT TO UNIT VIA GURN. PT TRANSFERRED IN PCU WITH SLIDER SHEET. ALL BELONGINGS LEFT IN PT'S ROOM. 2 UNITS OF BLOOD RUNNING WHEN PT WAS TRANSFERRED FROM PCU TO DAY SURGERY. DR SALES NOTIFIED OF COMPLETION OF DIALYSIS ON 12/22/24 AND NO CHEM PANEL DRAWN AFTER. DR SALES ORDERED STAT CHEM AND H&H. BOTH DRAWN AND SENT. PT ORIENTED BUT DROWSY. ABLE TO ANSWER QUESTIONS. NC REMAINED IN PLACE DURING TRANSPORT AND IN DAY SURGERY WITH 3L OXYGEN. PER DR SALES 3 LEAD PLACED ON PT IN DAY SURGERY. FITNESS WORKER REMOVED TELE BOX BEFORE LEAVING PCU. NO FAMILY IN ROOM WITH PT.
--- NOTE | 2024-12-23 01:53 | NUR ---
TRANSFER TO ICU: PT ARRIVED TO ICU BED 10 FROM OR AT 0122. PT IN PCU 01 BEFORE GOING TO OR. REPORT RECEIVED FROM RAKESH BUCK. PT ALERT AND ORIENTED ALTHOUGH SLEEPY AND GRUMPY TO ANSWER QUESTIONS. PT PLACED ON 4L NC FOR EPISODES OF DESATURATION INTO THE 80'S. PT DENIES SOB WHEN ASKED. ON 4L NC PT SATTING IN THE LOW 90'S. PT SOUNDS RHONCHORUS, ENCOURAGED TO COUGH. TEMPLATE STORAGE CLERK IN PLACE, SR WITH HR 70'S. SBP SOFT, MAP 60-65. DR. PEREZ AWARE. PT ARRIVED WITH LARGE AMOUNT OF DARK, MAROON COLORED STOOL. HAS NOT YET VOIDED SINCE ARRIVAL TO ICU. PT ENDORSES DISCOMFORT IN ABDOMEN. ABDOMEN FIRM AND TENDER. BT PRESENT IN ALL QUADRANTS. PT HAS SCATTERED SCABS ON LEFT HAND AND RIGHT FOOT. PT BOTTOM RED, BUT BLANCHABLE, MEPILEX PLACED FOR PROTECTION. POWERGLIDE TO WYATT PATENT, INFUSING PROTONIX AT 10 ML/HR. PIV TO WYATT AND RFA, BOTH PATENT AND SALINE LOCKED. BED LOW AND LOCKED, CALL LIGHT IN REACH.
[2024-12-23 02:22] LABS: Hematocrit 21.4 % (37.0-53.0); Hemoglobin 7.2 g/dL (13.5-17.5)
[2024-12-23 02:38] LABS: Albumin, Blood 2.4 g/dL (3.4-5.0); Anion Gap 10 mmol/L (3-11); Blood Urea Nitrogen 101 mg/dL (8-24); Bun/Creatinine Ratio 26.2 (12.0-20.0); CO2, Blood 32 mmol/L (21-32); Calcium, Blood 8.7 mg/dL (8.5-10.1); Chloride, Blood 101 mmol/L (98-108); Creatinine, Blood 3.85 mg/dL (0.60-1.20); Glomerular Filtration Rate 17 (60-); Glucose, Blood 105 mg/dL (70-99); Phosphorus, Blood 4.7 mg/dL (2.5-4.9); Potassium, Blood 5.2 mmol/L (3.5-5.5); Sodium, Blood 138 mmol/L (136-145)
[2024-12-23 02:39] LABS: Base Excess Venous 7.4 mmol/L; Bicarbonate Venous 29.8 mmol/L (24.0-30.0); PCO2 Venous 54.4 mmHg (38-42); pH Blood Venous 7.38 (7.34-7.37)
[2024-12-23] MEDS ORDERED: Midodrine 5 MG Tab PO SCH (02:40)
[2024-12-23] MEDS ORDERED: NS 250 ML IV ONE (03:00)
--- NOTE | 2024-12-23 05:04 | NUR ---
UPDATE: PT REFUSING TO WEAR AIRVO/OXYGEN. AGGRESIVELY SHAKING HEAD WHEN TRYING TO APPLY OXYGEN TO NOSE, STATES HE HAS HAD "ENOUGH OF THE BULLSHIT", STATES HE DOES NOT CARE IF HE ENDS UP INTUBATED.
--- NOTE | 2024-12-23 05:19 | NUR ---
UPDATE: DR. HAGEN AT BEDSIDE, PT CONTINUING TO REFUSE AIRVO, AGREED TO PUT NASAL CANNULA IN MOUTH ONLY. O2 AT 6L. SATTING 96%.
--- NOTE | 2024-12-23 05:33 | NUR ---
SHIFT SUMMARY: PT CONTINUES TO HAVE PERIODS OF DESATURATION LOW 72%. CURRENTLY ON 8L NC THROUGH MOUTH PER PT REQUEST, DR. HAGEN AWARE. REMAINS ALERT AND ORIENTED. VERY ADAMENT THAT HE DOES NOT WANT TO WEAR THE AIRVO. EDUCATED ON THE IMPORTANCE OF THE AIRVO. PT STATES HE DOES NOT CARE. TEST ENGINE MECHANIC REMAINS IN PLACE, SR WITH HR 70'S. SBP SOFT, MAP 55-65. LEVOPHED STARTED, TITRATED TO MAINTAIN MAP >65. CURRENTLY RUNNING AT 4 MCG/MIN. 1 UNIT PRBC'S GIVEN THIS SHIFT. PROTONIX AT 10 ML/HR. NO URINE THIS SHIFT, PT STATES HE DOES NOT MAKE URINE R/T DIALYSIS. EXTRA LARGE BM THIS SHIFT. PIV TO WYATT, AND RFA BOTH PATENT. POWERGLIDE TO WYATT PATENT. BED LOW AND LOCKED.
[2024-12-23 06:03] LABS: Base Excess Venous 6.4 mmol/L; Bicarbonate Venous 28.8 mmol/L (24.0-30.0); PCO2 Venous 56.5 mmHg (38-42); PO2 Venous 33.1 mmHg (38-42); pH Blood Venous 7.36 (7.34-7.37)
--- NOTE | 2024-12-23 07:27 | NUR ---
SHIFT ASSESSMENT THIS RN ASSUMED CARE OF PT @ 0700. WENT IN PTS ROOM FOR AM GLUCOSE CHECK AND ASSESSMENT. THIS RN ASKED PT TO LET ME CHECK GLUCOSE, PT RESPONDED "NO". PT DID STATE HE IS AT THE HOSPITAL IN [place]. THIS RN ASKED PT IF I CAN PERFORM ASSESSMENT AND PREPARE MEDS FOR THIS MORNING, PT AGAIN RESPONDED "NO, LEAVE ME ALONE". PT JERKED HAND BACK UNDER BLANKET AND TURNED HEAD AWAY. WILL ATTEMPT FULL ASSESSMENT AGAIN LATER THIS AM BUT PT CURRENTLY REFUSING ALL CARE. PULLING SPO2 PROBE OFF, QUITE ANGRY TOWARDS STAFF.
[2024-12-23] MEDS ORDERED: Aspirin 81 MG Chew PO SCH (09:00)
[2024-12-23] MEDS ORDERED: Sodium Zirconium Cyclosilicate 10 GM Packet PO SCH (09:00)
[2024-12-23] MEDS ORDERED: Furosemide 80 MG Tab PO SCH (09:00)
[2024-12-23] MEDS ORDERED: Clopidogrel Bisulfate 75 MG Tab PO SCH (09:00)
--- NOTE | 2024-12-23 12:48 | NUR ---
UPDATE PT REMAINS AGITATED AND UNWILLING TO COMPLY WITH CARE. PT DID ALLOW THIS RN AND BEAUTY CULTURIST APPRENTICE TO CHANGE LINENS BUT CONTINUES TO REFUSE HIS MEDICATIONS AND OXYGEN. STATED HE DID NOT WANT DIALYSIS, WILL ASK AGAIN WHEN DIALYSIS NURSE ARRIVES.
--- NOTE | 2024-12-23 13:57 | NUR ---
Met with the patient 3 times today in attempt to discuss plan of care. The first 2 attempts the patient repeated, "Leave me alone, leave me alone. Whatever is fine." However, I then spoke with Nasim, a charge nurse at [facility] where the patient lives. I told him the patient had not been cooperating with care, yet he recently filled out a POLST to revert to a Full-Code from DNR. Nasim states has a policy that any patient on dialysis must be a full code for the treatment. Nasim also states the patient has been talking "a lot" recently about a hospice consult with staff at , and he was finally given a hospice referral from his PCP, Dr. Grijalva, but he ended up getting admitted to the hospital prior to his hospice referral. On the 3rd visit with patient, I asked him about continuing with Dialysis, as he was due, and he declined instead yelling out, "I'll go with hospice, I'll go with hospice, I'll go with hospice." Dialysis nurse Ben was present for this, and called Dr. Rosen. Received order from Dr. Niño to change to comfort care, with hospice on return to [facility]. Pt has heart failure and end stage kidney disease, along with multiple other comorbidities.
--- NOTE | 2024-12-23 14:46 | NUR ---
UPDATE PT REFUSING ALL INTERVENTIONS. PULLING OFF ALL CORDS. TELLS NURSE TO LEAVE HIM ALONE. PLANS OF TRANSITIONING TO HOSPICE.
[2024-12-23] MEDS ORDERED: Morphine Sulfate 20 MG/1ML 1 ML Oral Syringe SL PRN (15:15)
[2024-12-23] MEDS ORDERED: Scopolamine Hydrobromide Patch TOP PRN (15:15)
[2024-12-23] MEDS ORDERED: Atropine Sulfate 1% Opth Soln 2ML BTL SL PRN (15:15)
[2024-12-23] MEDS ORDERED: Haloperidol Lactate 2 MG/ML Conc 1ML Dose PO PRN (15:15)
[2024-12-23] MEDS ORDERED: LORazepam 1 MG Tab PO PRN (15:15)
[2024-12-23] MEDS ORDERED: Pantoprazole Sodium 40 MG in NS 50 ML IV SCH (16:05)
[2024-12-23 16:39] LABS: BASOPHILS ABSOLUTE AUTO 0.07 K/mm3 (0.00-0.23); BASOPHILS PERCENT AUTO 1 % (0-2); EOSINOPHILS ABSOLUTE AUTO 0.01 K/mm3 (0.00-0.68); EOSINOPHILS PERCENT AUTO 0 % (0-6); Hematocrit 22.8 % (37.0-53.0); Hemoglobin 7.7 g/dL (13.5-17.5); IMMATURE GRAN ABSOLUTE AUTO 0.09 K/mm3 (0.00-0.10); IMMATURE GRAN PERCENT AUTO 1 % (0-1); LYMPHOCYTES ABSOLUTE AUTO 0.78 K/mm3 (0.84-5.20); LYMPHOCYTES PERCENT AUTO 6 % (21-46); MONOCYTES ABSOLUTE AUTO 0.92 K/mm3 (0.16-1.47); MONOCYTES PERCENT AUTO 7 % (4-13); Mean Corpuscular HGB 28.8 pg (26.0-34.0); Mean Corpuscular HGB Conc 33.8 g/dL (31.5-36.5); Mean Platelet Volume 11.6 fL (9.1-12.4); NEUTROPHILS ABSOLUTE AUTO 10.75 K/mm3 (1.96-9.15); NEUTROPHILS PERCENT AUTO 85 % (41-73); NRBC ABSOLUTE 0.04 K/mm3 (0.00-0.02); NRBC Auto 0.3 /100 WBC (0.0-0.2); Platelet Count 126 K/mm3 (150-400); RDW Standard Deviation 51.8 fL (35.1-46.3); Red Blood Cell Count 2.67 M/mm3 (4.30-5.90); White Blood Cell Count 12.62 K/mm3 (4.00-11.30)
[2024-12-23 16:41] LABS: Mean Corpuscular Volume 85 fL (80-100)
--- NOTE | 2024-12-23 17:26 | NUR ---
SHIFT SUMMARY AFTER PT REFUSED ALL CARE FOR MOST OF THE DAY, HE NOW WISHES TO RECEIVE FULL CARE BUT DID NOT RECEIVE DIALYSIS TODAY. PT A&OX4, INTERMITTENTLY COOPERATIVE BUT REMAINS AGITATED/ RUDE WITH STAFF. YELLING OUT, CALL LIGHT IN REACH AND PT DEMONSTRATES ABILITY TO USE CALL LIGHT/ TV CONTROLS. TOOK HIS EVENING MIDODRINE WITH CLEAR LIQUIDS, MAP >65, HAVE NOT NEEDED TO START LEVOPHED. PT INCONTINENT OF URINE TODAY X 1 BUT STATES HE IS CONTINENT AT HOME. NO BM TODAY.
[2024-12-23 18:01] LABS: HBV CORE ANTIBODIES,TOTAL Negative (Negative)
--- NOTE | 2024-12-23 20:41 | NUR ---
ASSUMPTION OF CARE: ASSUMED CARE OF PT AT 1910 FROM ANDREW RN. PT ALERT AND ORIENTED MAKING NEEDS KNOWN AND FOLLOWING DIRECTION. PT STILL ABRUPT AT TIMES BUT COOPERATIVE. PT ON 4L NC WITH SPO2 MID 90'S. DENIES SOB. LUNGS RHONCHORUS, COUGHING UP THICK SECRETIONS AT TIMES. SOFTWARE FIRMWARE ENGINEER IN PLACE, SR WITH HR 70'S. SBP 100'S WITH MAP >65. DENIES CP AT TIME OF ASSESSMENT. PT ADAMENT THAT HE WANTS FULL CARE. PT NOT YET VOIDED THIS SHIFT. NO BM YET. PIVS INTACT AND SALINE LOCKED. POWERGLIDE INTACT AND SALINE LOCKED. BED LOW AND LOCKED, CALL LIGHT IN REACH.
[2024-12-23] MEDS ORDERED: Pantoprazole Sodium 40 MG Injection IV SCH (21:00)
[2024-12-23] MEDS ORDERED: Midodrine 5 MG Tab PO ONE (22:15)
--- NOTE | 2024-12-23 22:24 | NUR ---
UPDATE: PT VERY AGGITATED WITH OXYGEN AGAIN THIS EVENING. DOES NOT WANT TO WEAR THE AIRVO DESPITE DESATTING TO THE 60'S ON 15L NC. PT STATES THE AIR IS TOO HOT, RT NOTIFIED AND PLACED PT BACK ON NC. CALL PLACED TO HOSPITALIST HARLEY FOR UPDATE ON PT CONDITION. DR. HAGEN THEN AT BEDSIDE TO SEE PT, DISCUSSED THE OPTION OF COMFORT CARE D/T PT NON-COMPLIANCE WITH TREATMENT. PT DECLINES THE IDEA OF COMFORT CARE, WANTS TO REMAIN FULL CODE. PT EDUCATED ON THE NEED FOR THE OXYGEN INCLUDING THE RISK OF IF HE DOES NOT WEAR IT. PT STATES HE IS AWARE. CURRENTLY AGREEING TO WEAR OXYGEN AT THE MOMENT, ON 15L NC SATTING 98%. PT STATES HE WANTS TO BE LEFT ALONE TO SLEEP. BLOOD PRESSURE SOFT WELL AT TIME DR. HAGEN AT BEDSIDE, MAP 62. ADDITIONAL DOSE OF MIDODRINE ORDERED AND ADMINISTERED. CONTINUING TO MONITOR PT. CALL LIGHT IN REACH.
[2024-12-24] VITALS (55 sets, daily range): BP systolic 70–138; BP diastolic 35–120
--- NOTE | 2024-12-24 02:05 | NUR ---
update: LORENZO RN TO ASSUME CARE OF PT FROM THIS RN AT 0200. PT CONTINUES TO REFUSE OXYGEN. SATS CURRENTLY 72%, EDUCATED PT AGAIN ON THE NEED FOR OXYGEN. PT VERBALIZING TO THIS RN AND TERESA RN THAT HE DOES NOT CARE, HE DOES NOT WANT THE OXYGEN. VERBALIZES THAT HE COULD FROM NOT HAVING OXYGEN ON. PT REMAINS ALERT AND ORIENTED AND ABLE TO COMMUNICATE APPROPRIATELY. CALL LIGHT IN REACH.
[2024-12-24 03:33] LABS: BASOPHILS ABSOLUTE AUTO 0.05 K/mm3 (0.00-0.23); BASOPHILS PERCENT AUTO 1 % (0-2); EOSINOPHILS ABSOLUTE AUTO 0.01 K/mm3 (0.00-0.68); EOSINOPHILS PERCENT AUTO 0 % (0-6); Hematocrit 23.8 % (37.0-53.0); Hemoglobin 7.8 g/dL (13.5-17.5); IMMATURE GRAN ABSOLUTE AUTO 0.08 K/mm3 (0.00-0.10); IMMATURE GRAN PERCENT AUTO 1 % (0-1); LYMPHOCYTES ABSOLUTE AUTO 0.98 K/mm3 (0.84-5.20); LYMPHOCYTES PERCENT AUTO 9 % (21-46); MONOCYTES ABSOLUTE AUTO 0.87 K/mm3 (0.16-1.47); MONOCYTES PERCENT AUTO 8 % (4-13); Mean Corpuscular HGB 28.5 pg (26.0-34.0); Mean Corpuscular HGB Conc 32.8 g/dL (31.5-36.5); Mean Corpuscular Volume 87 fL (80-100); Mean Platelet Volume 10.9 fL (9.1-12.4); NEUTROPHILS ABSOLUTE AUTO 8.58 K/mm3 (1.96-9.15); NEUTROPHILS PERCENT AUTO 81 % (41-73); NRBC ABSOLUTE 0.03 K/mm3 (0.00-0.02); NRBC Auto 0.3 /100 WBC (0.0-0.2); Platelet Count 128 K/mm3 (150-400); RDW Coefficient Variation 17.8 % (11.7-14.2); RDW Standard Deviation 53.5 fL (35.1-46.3); Red Blood Cell Count 2.74 M/mm3 (4.30-5.90); White Blood Cell Count 10.57 K/mm3 (4.00-11.30)
[2024-12-24 03:51] LABS: Albumin, Blood 2.5 g/dL (3.4-5.0); Anion Gap 13 mmol/L (3-11); Blood Urea Nitrogen 117 mg/dL (8-24); Bun/Creatinine Ratio 22.8 (12.0-20.0); CO2, Blood 28 mmol/L (21-32); Calcium, Blood 9.2 mg/dL (8.5-10.1); Chloride, Blood 100 mmol/L (98-108); Creatinine, Blood 5.14 mg/dL (0.60-1.20); Glomerular Filtration Rate 12 (60-); Glucose, Blood 104 mg/dL (70-99); Magnesium, Blood 2.1 mg/dL (1.6-2.4); Phosphorus, Blood 6.9 mg/dL (2.5-4.9); Potassium, Blood 5.8 mmol/L (3.5-5.5); Sodium, Blood 135 mmol/L (136-145)
--- NOTE | 2024-12-24 05:49 | NUR ---
SHIFT SUMMARY: I ASSUMED CARE OF PT APPROXIMATELY 0200. PT HAS CONTINUED TO REFUSE TO WEAR OXYGEN AND PULSE OX. HE HAS BEEN VERY UNCOOPERATIVE AND ANGRY THROUGHOUT SHIFT, YELLING ANYTIME I ENTER THE ROOM. HE SAYS HE DOESN'T WANT ANYTHING DONE, BUT ALSO DOES NOT WANT TO BE MADE DNR OR COMFORT CARE. PT HAS STATED REPEATEDLY THAT HE WANTS TO HOLD OUT TO GO TO [place]. BP HAS BEEN SOFT TO HYPOTENSIVE. OCCASIONAL COUGH, LUNGS RHONCHUS.
[2024-12-24 06:36] LABS: Base Excess Venous 1.5 mmol/L; Bicarbonate Venous 25.5 mmol/L (24.0-30.0); PCO2 Venous 50.1 mmHg (38-42); pH Blood Venous 7.34 (7.34-7.37)
[2024-12-24 09:25] LABS: HEPATITIS B SURFACE ANTIBODY 143.34 IU/L
[2024-12-24 09:29] LABS: HEPATITIS B SURFACE ANTIGEN Negative (Negative)
--- NOTE | 2024-12-24 13:45 | NUR ---
PT REFUSING CONTINUOUS SPO2 MONITOR AND NOW HIS B/P CUFF. ATTEMPTED REDIRECTION AND EDUCATION. PT REFUSED MULTIPLE TIMES AND BEGAN RAISING HIS VOICE. B/P REMOVED AT THIS TIME.
[2024-12-24 14:18] LABS: Hematocrit 25.4 % (37.0-53.0); Hemoglobin 8.3 g/dL (13.5-17.5)
[2024-12-24 14:26] LABS: Albumin, Blood 2.4 g/dL (3.4-5.0); Albumin/Globulin Ratio 0.8 (0.8-1.8); Bilirubin, Total 1.1 mg/dL (0.1-1.0); Bun/Creatinine Ratio 19.8 (12.0-20.0); Calcium, Blood 8.9 mg/dL (8.5-10.1); Creatinine, Blood 3.08 mg/dL (0.60-1.20); Globulin, Blood 3.2 g/dL (2.2-4.0); Magnesium, Blood 1.8 mg/dL (1.6-2.4); Phosphorus, Blood 4.5 mg/dL (2.5-4.9); Potassium, Blood 4.4 mmol/L (3.5-5.5); Total Protein, Blood 5.6 g/dL (6.4-8.2)
--- NOTE | 2024-12-24 15:36 | NUR ---
SHIFT SUMMARY PATIENT ALERT AND ORIENTED TO SELF AND ABLE TO STATE WHO THE PRESIDENT IS. DISORIENTED TO PLACE AND SITUATION. DROWSY, AWAKENS TO VERBAL STIMULI. MOOD: SOMEWHAT AGITATED AND DEMANDING AT TIMES. CARDIAC: SINUS ARRYTHMIA, PACS. SBP 90-110S MAP >65. FREQUENTLY REFUSING AND REMOVING BP CUFF. LUNGS: COARSE/WHEEZES THROUGH OUT. TACHYPNEIC AT TIMES. SPO2 89-97% ON RA. GI: HYPERACTIVE BOWEL TONES, PASSING FLATUS, ABDOMEN MILDLY DISTENDED. PT REPORTED SOME INTERMITTENT SHARP ABDO PAIN TODAY. DR PEREZ AT BEDSIDE THIS AFTERNOON AND INFORMED. : ANURIC, ESRD. ZERO OUTPUT TODAY. MOBILITY: L BKA, STATES HE HAS A PROSTHETIC AT HOME BUT HAS NOT USED IN SOME TIME. FREQUENTLY CHANGING POSITION IN BED. SKIN: RLE DISCOLORED, FAIR/WEAK PULSE, SCABBED WOUNDS L MIDDLE FINGER AND SCATTERED RED BUMPS TO CHEST. PT HAD DIALYSIS TODAY AND RECIEVED 1 UNIT PRBC. PLAN DC [facility] AT [facility] PER JENNIEAGEMENT
--- NOTE | 2024-12-24 17:33 | NUR ---
THIS RN ASSUMED CARE OF PT AT 1730, PT IS ALERT AND ORIENTED, THIS RN REVIEWED WILMER CARDONA ASSESSMENT AND AGREE WITH FINDINGS, NO NEW CHANGES TO REPORT IN THIS CORRESPONDENCE RENEW CLERK. PT WAS REFUSING MEDICATIONS AND WILL NOT LET THIS RN TAKE A SET OF VITAL SIGNS, HAS BEEN NOTIFIED. PT IS ON CONTINUOUS COLLATING MACHINE OPERATOR AND LOOKS LIKE NORMAL SINUS RYTHM 70s. NO OTHER INTERVENTIONS AT THIS TIME. PLAN OF CARE CONTINUED. WILL COME BY AROUND 1800 TO SEE PT.
--- NOTE | 2024-12-24 18:23 | NUR ---
PT UPDATE: PT RIPPED EKG LEADS OFF, PT REFUSING FOR THIS RN TO PUT THEM BACK ON, HAS BEEN NOTIFIED OF THE SITUATION. NO INTERVENTIONS AT THIS TIME. PLAN OF CARE CONTINUE
--- NOTE | 2024-12-24 20:22 | NUR ---
PT ALLOWED FOR A REPOSITION. HE WAS ASKED SYSTEMATICALLY ABOUT WHAT HE WOULD ALLOW FOR ASSESSMENT AND CARE. HE DECLINED ANYTHING BEYOND THE REPOSITION. HE DECLINED MONITORING VIA JOINTER MACHINE, BLOOD PRESSURE CUFF, AND PULSE OX. HE DECLINED TO WEAR OXYGEN. HE DECLINED FURTHER ASSISTANCE WITH ADLS OR HYGIENE CARE. HE DECLINED MEDICATIONS. HE WAS ASKED IF HE WOULD BE WILLING TO ROLL BACK AND FORTH TO ASSIST WITH LINEN CHANGE AND DECLINED. HE DECLINED ANY MEDICATIONS. I REMINDED HIM THAT HIS 2100 MEDICATIONS INCLUDE HIS GABAPENTIN WHICH HELPS WITH HIS FOOT PAIN. HE STILL DECLINED. I HANDED HIM HIS CALL LIGHT AND ENCOURAGED HIM TO CALL SHOULD HE CHANGE HIS MIND AND THAT OTHERWISE I WOULD BE IN PERIODICALLY AND HE COULD CHANGE HIS MIND ABOUT ANY OF THE ABOVE.
--- NOTE | 2024-12-24 23:37 | NUR ---
PT STILL REFUSING MOST CARE FROM ME SPECIFICALLY. IS ASKING AGAIN ABOUT BEING A DNR. SAYS WE ARE BEING ABUSIVE AND THAT HE JUST WANTS TO BE LEFT ALONE. HE PULLED BOTH OF HIS IVS SINCE I LAST CHECKED ON HIM. HE HAD BLOOD ON HIS BLANKET AND KEPT SAYING THAT SOMEONE ELSE CAME IN AND PULLED THEM OUT. ONE WAS ON THE BEDSIDE AND THE OTHER IN BED WITH HIM. ONE SITE WAS STILL BLEEDING, IT WAS BANDAGED. HE WAS CLEANED UP AFTERWARD. PATIENT IS ALERT AND ORIENTED APPROPRIATELY, HE IS JUST VERY AGITATED WITH ANY CARE ATTEMPTED. HE DID ALLOW ONE BREATHING TREATMENT THIS EVENING. SPOKE WITH HARLEY VILLELA ABOUT CODE STATUS. AGREED THAT AT THE PATIENT'S REQUEST TO CHANGE TO DNR AGAIN.
[2024-12-25] VITALS (8 sets, daily range): BP systolic 134–156; BP diastolic 56–115
--- NOTE | 2024-12-25 05:21 | NUR ---
SHIFT SUMMARY: PT HAS REFUSED MOST CARE THROUGHOUT THE NIGHT. HE ASKED FOR TWO BREATHING TREATMENTS, GABAPENTIN AND THIS MORNING ALLOWED ME TO ASSESS HIS SPO2 AND BLOOD PRESSURE. HE DID HAVE A BOWEL MOVEMENT THIS AM AND WAS SOMEWHAT COOPERATIVE WITH CLEAN UP. BM WAS BLACK AND TARRY. ON THE DAY OF SURGERY DR PEREZ SAID TO EXPECT A FEW BMS LIKE THIS TO PASS WHATEVER REMAINED FROM PREVIOUS. PT DID NOT SLEEP LAST NIGHT AND THIS AM HE WAS MAKING SOME CONFUSED, REPETITIVE STATEMENTS. HE COULD GENERALLY BE REDIRECTED BUT HAS ALSO HAD SEVERAL PERIODS OF EXTREME AGITATION AND AGGRESSION THROUGHOUT THE SHIFT.
[2024-12-25] MEDS ORDERED: ALBU90OI INH (09:37)
[2024-12-25] MEDS ORDERED: PANT40 PO (09:37)
--- NOTE | 2024-12-25 11:27 | NUR ---
START OF SHIFT THIS NURSE ASSUMED CARE AT APPROXIMATELY 0700. PT RESTING IN BED AND STATING TODAY THAT HE IS COOPERATIVE. PT HAS HAD 3-4 MELENA STOOL. PROVIDER DAYSI AWARE AND PROVIDER ANA AWARE OF POSSIBLE SCOPE. PROVIDER OSMAR STATED HIM OR LIDIA WILL TALK TO THE PT TO EXPLAIN RISKS AND BENEFITS AND COOPERATION IF PT DECIDES TO EXTEND HIS HOSPITAL STAY. WILL CONTINUE WITH THE PLAN OF CARE.
[2024-12-25 13:13] LABS: BASOPHILS ABSOLUTE AUTO 0.03 K/mm3 (0.00-0.23); BASOPHILS PERCENT AUTO 0 % (0-2); EOSINOPHILS ABSOLUTE AUTO 0.02 K/mm3 (0.00-0.68); EOSINOPHILS PERCENT AUTO 0 % (0-6); Hematocrit 27.7 % (37.0-53.0); Hemoglobin 8.9 g/dL (13.5-17.5); IMMATURE GRAN ABSOLUTE AUTO 0.06 K/mm3 (0.00-0.10); IMMATURE GRAN PERCENT AUTO 1 % (0-1); LYMPHOCYTES ABSOLUTE AUTO 0.85 K/mm3 (0.84-5.20); LYMPHOCYTES PERCENT AUTO 9 % (21-46); MONOCYTES ABSOLUTE AUTO 0.96 K/mm3 (0.16-1.47); MONOCYTES PERCENT AUTO 10 % (4-13); Mean Corpuscular HGB 28.6 pg (26.0-34.0); Mean Corpuscular HGB Conc 32.1 g/dL (31.5-36.5); Mean Corpuscular Volume 89 fL (80-100); Mean Platelet Volume 10.5 fL (9.1-12.4); NEUTROPHILS PERCENT AUTO 80 % (41-73); NRBC ABSOLUTE 0.03 K/mm3 (0.00-0.02); NRBC Auto 0.3 /100 WBC (0.0-0.2); Platelet Count 114 K/mm3 (150-400); RDW Coefficient Variation 18.5 % (11.7-14.2); RDW Standard Deviation 58.8 fL (35.1-46.3); Red Blood Cell Count 3.11 M/mm3 (4.30-5.90); White Blood Cell Count 9.52 K/mm3 (4.00-11.30)
[2024-12-25 13:37] LABS: Bun/Creatinine Ratio 19.5 (12.0-20.0); Calcium, Blood 9.2 mg/dL (8.5-10.1); Creatinine, Blood 4.26 mg/dL (0.60-1.20); Phosphorus, Blood 6.1 mg/dL (2.5-4.9)
--- NOTE | 2024-12-25 17:29 | NUR ---
SHIFT SUMMARY PT REMAINS HAVING SOFT BOWEL MOVEMENTS. PT HAS NOT HAD A MAROON BOWEL MOVEMENT SINCE THIS MORNING. LABS WERE OBTAINED AND PROVIDER WAS NOTIFIED. PT BM HAVE BEEN BROWN OR COFFEE GROUND. PROVIDER STATED PLAN IS TO MONITOR TONIGHT AND NOTIFY PROVIDER IF PT STATUS CHANGES AND THEN TO TXFER TO [facility] TOMORROW. WILL CONTINUE WITH THE PLAN OF CARE.
--- NOTE | 2024-12-25 20:50 | NUR ---
PTS OVERALL DEMEANOR HAS BEEN BETTER SO FAR THIS SHIFT. HE ALLOWED FOR VITALS AND TURNS IN BEDS. HE IS PARTICIPATING BETTER. ALERT AND ORIENTED APPROPRIATELY. BREATHING IS RHONCHUS, HE DOES NOT COMPLAIN OF DYSPNEA. NO COMPLAINT OF PAIN. REPORT GIVEN TO [facility] FLOOR, PT LEFT ICU AT 2051
--- NOTE | 2024-12-25 23:03 | NUR ---
@2029 REPORT RECEIVED FROM LANDING SCALER LORENZO. @2054 PT ARRIVED TO MEDICAL FLOOR RM #[id number]. PT WAS TRANSFERRED TO HOSPITAL BED BY SLIDING, ASSISTED WITH THREE STAFF MEMBERS. PT BROUGHT ALL HIS BELONINGS WITH HIM. EDUCATED FIELD INSTRUCTOR LIGHT AND FALL PRECAUTIONS. @2229 THIS EMERGENCY MEDICINE ATTEMPTED TO PUT ON DNR WRISTBAND. PT STATED "OH NO, I WANT TO BE RESUCITATED". PT REFUSED THE WRISTBAND. WINCHMAN/CRANE OPERATOR NURSES NOTIFIED. @HS PER SHIFT ASSESSMENT, PT IS A/O X3-4, COOPERATIVE WHEN VS TAKEN, HS B. BLACK, TARRY AND PASTY STOOLS, ATTENDS IN PLACE. INCONTINENT OF URINE AND STOOL. LEFT BKA. RIGHT LE WEAK,LE EDEMA +1. BEDREST. STRICT I&O ORDER. PT REMAINS IN DROPLET ISO D/T DX OF RSV. LUNG SOUNDS DIM T/O. NO COUGH NOTED. ON RA>92%. PT DENIES SOB @HS. REPOSITIONED<Q2HRS. PT DENIES PAIN. PLAN IS TO D/C TOMORROW TO [facility] IN [place], OR. BED AT THE LOWEST POSITION, CALL LIGHT W/I REACH. PT IS ABLE TO MAKE HIS NEEDS KNOWN AND CALLS APPROPRIATELY.
[2024-12-26] VITALS (17 sets, daily range): BP systolic 116–159; BP diastolic 47–880
[2024-12-26] MEDS ORDERED: MethylPREDNISolone Sod Succ 125 MG Vial IV ONE ×2 (05:55→06:20)
--- NOTE | 2024-12-26 05:56 | NUR ---
@9313 BY THE PT'S BEDSIDE. NEW VERBAL ORDERS: - SOLUMEDROL IV 125MG X1 NOW. - NEEDS DIALYZED TODAY, WILL LET DIALYSIS CNTR. KNOW.
[2024-12-26] MEDS ORDERED: Pantoprazole Sodium 40 MG Tab PO SCH (06:00)
[2024-12-26 06:20] LABS: Hematocrit 27.4 % (37.0-53.0); Hemoglobin 8.9 g/dL (13.5-17.5)
[2024-12-26 06:51] LABS: Albumin, Blood 2.4 g/dL (3.4-5.0); Anion Gap 13 mmol/L (3-11); Blood Urea Nitrogen 93 mg/dL (8-24); CO2, Blood 28 mmol/L (21-32); Calcium, Blood 9.2 mg/dL (8.5-10.1); Chloride, Blood 96 mmol/L (98-108); Creatinine, Blood 5.18 mg/dL (0.60-1.20); Glomerular Filtration Rate 12 (60-); Glucose, Blood 290 mg/dL (70-99); Phosphorus, Blood 6.1 mg/dL (2.5-4.9); Potassium, Blood 5.2 mmol/L (3.5-5.5); Sodium, Blood 132 mmol/L (136-145)
[2024-12-26] MEDS ORDERED: BENZ100A PO (11:45)
--- NOTE | 2024-12-26 17:38 | NUR ---
DISHCHARGE NOTE PT A&OX4. PT ADMITTED DUE TO MELENA. PT IRRITABLE DURING SHIFT. PT HAD ONE DARK STOOL. VSS. PT HAS L BKA. PT IS Q2 TURN. PT ON STRICT I'S AND O'S. PT IS ACHS. BLOOD SUGARS CORRECTED DURING SHIFT VIA SLIDING SCALE. PT ON ROOM AIR. PT IS INC/CONT OF URINE AND BM. PT HAD DIALYSIS THIS AM. GAVE REPORT TO [facility] NURSE. TRANSPORT CAME TO ESCORT PT TO FACILITY. IV D/C. PT LEFT WITH DISCHARGE INSTRUCTIONS. MEDS FAXED. PT LEFT WITH BELONGINGS.
== END 2024-12-26 15:45 | disposition home or self-care (01) | DRG 391 ==
LOC: ER 02:11 → PCU 05:46 → ERHOLD 05:46 → ICUE 05:46 → PCU 08:45 → ICUE 23:58 → MEDS 12-25 20:56
PROVIDERS: Hospitalist; Internal Medicine Nephrology; Student in an Organized Health Care Education/Training Program; ADMIT Student in an Organized Health Care Education/Training Program
PROC: 30233N1 Transfusion of Nonautologous Red Blood Cells into Peripheral Vein, Percutaneous Approach (ICD-10-PCS; 2024-12-22)
PROC: 5A1D70Z Performance of Urinary Filtration, Intermittent, Less than 6 Hours Per Day (ICD-10-PCS; 2024-12-22)
PROC: 0W3P8ZZ Control Bleeding in Gastrointestinal Tract, Via Natural or Artificial Opening Endoscopic (ICD-10-PCS; principal; 2024-12-23)
PROC: 5A0935A Assistance with Respiratory Ventilation, Less than 24 Consecutive Hours, High Flow/Velocity Cannula (ICD-10-PCS; 2024-12-23)
PROC: 3E033XZ Introduction of Vasopressor into Peripheral Vein, Percutaneous Approach (ICD-10-PCS; 2024-12-23)
DX: K22.89 Other specified disease of esophagus (principal); J96.01 Acute respiratory failure with hypoxia; N18.6 End stage renal disease; R57.1 Hypovolemic shock; R57.8 Other shock; J96.02 Acute respiratory failure with hypercapnia; Z66 Do not resuscitate; I13.2 Hypertensive heart and chronic kidney disease with heart failure and with stage 5 chronic kidney disease, or end stage renal disease; I50.22 Chronic systolic (congestive) heart failure; R18.8 Other ascites; E87.1 Hypo-osmolality and hyponatremia; N25.81 Secondary hyperparathyroidism of renal origin; E87.70 Fluid overload, unspecified; D63.1 Anemia in chronic kidney disease; E11.22 Type 2 diabetes mellitus with diabetic chronic kidney disease; I25.10 Atherosclerotic heart disease of native coronary artery without angina pectoris; E11.40 Type 2 diabetes mellitus with diabetic neuropathy, unspecified; E78.5 Hyperlipidemia, unspecified; E87.5 Hyperkalemia; Z99.2 Dependence on renal dialysis; E88.09 Other disorders of plasma-protein metabolism, not elsewhere classified; J98.01 Acute bronchospasm; D69.6 Thrombocytopenia, unspecified; I25.2 Old myocardial infarction; Z79.4 Long term (current) use of insulin; Z95.5 Presence of coronary angioplasty implant and graft; Z89.512 Acquired absence of left leg below knee; Z79.82 Long term (current) use of aspirin; Z79.02 Long term (current) use of antithrombotics/antiplatelets; Z86.14 Personal history of Methicillin resistant Staphylococcus aureus infection; Z86.16 Personal history of COVID-19; Z87.891 Personal history of nicotine dependence; B97.4 Respiratory syncytial virus as the cause of diseases classified elsewhere
CPT/HCPCS: 0241U; 36415; 36430; 71045; 71046; 74176; 80048; 80053; 80069; 82140; 82803; 82947; 83690; 83735; 83880; 84100; 84484; 85014; 85018; 85025; 85610; 85730; 86704; 86850; 86900; 86901; 86920; 86923; 87340; 93005; 93010; 93306; 93356; 94640; 94664; 94760; 94762; 96365; 96366; 99285-25; A9270; C1751; J0171; J0881; J1815; J1940; J2250; J2371; J2405; J2470; J2704; J2765; J2919; J3010; J7030; J7050; J7060; J7799; P9016; P9047

== ENCOUNTER 2024-12-31 10:19 | Emergency (ER) | payer MEDICARE, OTHER ==
[~2024-12-31] VITALS: Ht 182.9 cm; Wt 83.9 kg
[~2024-12-31 10:19] MED LIST changes: +ALBU90OI INH; +AURYXIA210 MG PO; +BENZ100A PO; +NIFE60ER PO; +PANT40 PO
[2024-12-31 11:00] LABS: BASOPHILS ABSOLUTE AUTO 0.01 K/mm3 (0.00-0.23); BASOPHILS PERCENT AUTO 0 % (0-2); EOSINOPHILS ABSOLUTE AUTO 0.03 K/mm3 (0.00-0.68); EOSINOPHILS PERCENT AUTO 0 % (0-6); Hematocrit 28.4 % (37.0-53.0); Hemoglobin 9.4 g/dL (13.5-17.5); IMMATURE GRAN ABSOLUTE AUTO 0.05 K/mm3 (0.00-0.10); IMMATURE GRAN PERCENT AUTO 1 % (0-1); LYMPHOCYTES ABSOLUTE AUTO 0.37 K/mm3 (0.84-5.20); LYMPHOCYTES PERCENT AUTO 5 % (21-46); MONOCYTES ABSOLUTE AUTO 0.67 K/mm3 (0.16-1.47); MONOCYTES PERCENT AUTO 9 % (4-13); Mean Corpuscular HGB 29.1 pg (26.0-34.0); Mean Corpuscular HGB Conc 33.1 g/dL (31.5-36.5); Mean Corpuscular Volume 88 fL (80-100); Mean Platelet Volume 11.4 fL (9.1-12.4); NEUTROPHILS ABSOLUTE AUTO 6.73 K/mm3 (1.96-9.15); NEUTROPHILS PERCENT AUTO 86 % (41-73); Platelet Count 219 K/mm3 (150-400); RDW Coefficient Variation 17.9 % (11.7-14.2); RDW Standard Deviation 56.3 fL (35.1-46.3); Red Blood Cell Count 3.23 M/mm3 (4.30-5.90); White Blood Cell Count 7.86 K/mm3 (4.00-11.30)
[2024-12-31 11:24] LABS: Albumin, Blood 2.4 g/dL (3.4-5.0); Albumin/Globulin Ratio 0.6 (0.8-1.8); Bilirubin, Total 1.1 mg/dL (0.1-1.0); Bun/Creatinine Ratio 16.8 (12.0-20.0); Calcium, Blood 9.8 mg/dL (8.5-10.1); Creatinine, Blood 6.31 mg/dL (0.60-1.20); Potassium, Blood 5.2 mmol/L (3.5-5.5); Total Protein, Blood 6.4 g/dL (6.4-8.2)
[2024-12-31] MEDS ORDERED: Insulin Regular 100 Unit/ML 1ML Dose IV ONE ×2 (11:30→12:45)
[2024-12-31] MEDS ORDERED: Furosemide 10 MG/ML 10ML Vial IV ONE (11:35)
[2024-12-31] MEDS ORDERED: Acetaminophen325 M1 PO (12:00)
[2024-12-31] MEDS ORDERED: BISA10S PR (12:04)
[2024-12-31] MEDS ORDERED: Fleet Enema132 ML PR (12:04)
[2024-12-31] MEDS ORDERED: GLUCAGEN1 MG/1 M1 SC (12:04)
[2024-12-31] MEDS ORDERED: DULCOLAX400 MG/5 M PO (12:05)
[2024-12-31] MEDS ORDERED: ONDA4ODT MM (12:05)
[2024-12-31] MEDS ORDERED: LOPE2C PO (12:05)
[2024-12-31] MEDS ORDERED: TRIPLE ANTIBIOT28 GM (12:06)
[2024-12-31] MEDS ORDERED: Insulin Glargine-Yfgn 100 Unit/mL 3 ML SYR SC ONE (12:45)
[2024-12-31] MEDS ORDERED: BASAGLAR K100 UNIT/1 SC (12:53)
[2024-12-31] MEDS ORDERED: DOXY100 PO (12:58)
== END 2024-12-31 14:39 | disposition home or self-care (01) ==
LOC: ER 10:19
PROVIDERS: Emergency Medicine
DX: E11.65 Type 2 diabetes mellitus with hyperglycemia (principal); L03.115 Cellulitis of right lower limb; I13.2 Hypertensive heart and chronic kidney disease with heart failure and with stage 5 chronic kidney disease, or end stage renal disease; E11.22 Type 2 diabetes mellitus with diabetic chronic kidney disease; N18.6 End stage renal disease; I50.20 Unspecified systolic (congestive) heart failure; E78.5 Hyperlipidemia, unspecified; I25.10 Atherosclerotic heart disease of native coronary artery without angina pectoris; I25.2 Old myocardial infarction; Z99.2 Dependence on renal dialysis; Z79.4 Long term (current) use of insulin; Z79.899 Other long term (current) drug therapy; Z66 Do not resuscitate
CPT/HCPCS: 71046; 80053; 82947; 85025; 93005; 93010; 99285-25; J1815; J1940